=== PATIENT | female | born 2000 | race Caucasian/White ===

== ENCOUNTER → 2020-08-16 | Outpatient (CLI) | payer MEDICAID, SELFPAY ==
[2020-08-16 10:56] VITALS: BMI 28.8
[2020-08-18 05:07] LABS: Chlamydia By Nucleic Acid AMP Negative (Negative)
[2020-08-18 12:35] LABS: Gonococcus By Nucleic Acid AMP Negative (Negative)
[2020-08-18 21:04] LABS: HPV Reflexed? NOT INDICATED
== END | disposition home or self-care (01) ==
LOC: LABSPEC 13:05
PROVIDERS: PCP Nurse Practitioner Family; Referring Provider Nurse Practitioner Women's Health; Visit Provider Nurse Practitioner Women's Health
DX: Z12.4 Encounter for screening for malignant neoplasm of cervix (principal); Z11.3 Encounter for screening for infections with a predominantly sexual mode of transmission
CPT/HCPCS: 87491; 87591; 88175; G0145

== ENCOUNTER → 2021-04-19 15:44 | Outpatient (CLI) | payer MEDICAID, SELFPAY ==
[2021-04-19 17:12] LABS: hCG Titer Quant., Serum 102 mIU/mL (1-3)
== END ==
PROVIDERS: PCP Nurse Practitioner Family; Referring Provider Obstetrics & Gynecology; Visit Provider Obstetrics & Gynecology
DX: Z34.90 Encounter for supervision of normal pregnancy, unspecified, unspecified trimester (principal)
CPT/HCPCS: 36415; 84702

== ENCOUNTER → 2021-04-21 08:37 | Outpatient (CLI) | payer MEDICAID, SELFPAY ==
[2021-04-21 09:33] LABS: hCG Titer Quant., Serum 286 mIU/mL (1-3)
== END ==
PROVIDERS: PCP Nurse Practitioner Family; Visit Provider Obstetrics & Gynecology
DX: N92.6 Irregular menstruation, unspecified (principal)
CPT/HCPCS: 84702

== ENCOUNTER 2021-05-01 16:14 | Emergency (ER) | payer MEDICAID, SELFPAY ==
[2021-05-01 16:16] VITALS: BP 134/62; PULSE 90; RESP 16; TEMP 36.1; O2SAT 97; BMI 29.2
--- NOTE | 2021-05-01 16:48 | EDS_ITS ---
HPI HPI - Female History of Present Illness Chief Complaint: Detail of Chief Complaint: Fell getting out of her truck today landing on her abdomen. Informant: patient Pain Context: Sudden Onset Timing: Continuous Quality: Positive for Aching Current Severity: Mild Maximum Severity: Mild Bleeding Issue: Negative for Vaginal bleeding Narrative Narrative: 20-year-old female currently [address] Karen Cannon. Patient states she was getting out of her truck today when she fell landing on her abdomen. Complaining of mild lower abdominal pain. Prior to this she had no pain. No vaginal bleeding. And is currently not having any vaginal bleeding. No hematuria. No fever or chills. States pain stabbing. She has had a prior . She has a history of anemia. Prior similar symptoms: No Recent Illness/Hospitalization: No PFSH [facility] Medical History Migraines VIOLET (obstructive sleep apnea) Home Medications albuterol sulfate 90 mcg/actuation breath activated powder inhaler 2 inh INHALATION Q6H PRN 08/16/20 [History Last Taken Unknown] atorvastatin 20 mg tablet 20 mg PO QHS 08/16/20 [History Last Taken Unknown] calcium carbonate 600 mg calcium (1,500 mg) tablet 600 mg PO DAILY 08/16/20 [History Last Taken Unknown] cetirizine 10 mg tablet 10 mg PO DAILY PRN 08/16/20 [History Last Taken Unknown] ergocalciferol (vitamin D2) 1,250 mcg (50,000 unit) capsule 1,250 mcg PO QWEEK 08/16/20 [History Last Taken Unknown] ferrous sulfate 325 mg (65 mg iron) tablet 325 mg PO TID tab 08/16/20 [History Last Taken Unknown] norgestimate 0.25 mg-ethinyl estradiol 35 mcg tablet 1 tab PO QDAY #84 tab 08/16/20 [Rx Last Taken Unknown] prednisone 20 mg tablet 40 mg PO DAILY tab 08/16/20 [History Last Taken Unknown] venlafaxine 37.5 mg tablet 37.5 mg PO DAILY 08/16/20 [History Last Taken Unknown] Allergy/AdvReac Type Severity Reaction Status Date / Time paroxetine [From Paxil] Allergy Intermediate Anaphylaxis Verified 05/01/21 16:16 mushroom Allergy Anaphylaxis Verified 05/01/21 16:16 tomato Allergy Anaphylaxis Verified 05/01/21 16:16 venlafaxine Allergy Anaphylaxis Verified 05/01/21 16:16 SEAFOOD Allergy Other Uncoded 05/01/21 16:16 Family History Grandfather CVA (cerebral vascular accident) Heart disease Leukemia Surgical History S/P Social History household members: significant other and children number of children: 1 current occupational status: employed current occupation: assisteed living, [employer] history of recent travel: No sexually active: Yes Smoking Status: Never smoker alcohol intake: current alcohol intake frequency: a few times a month substance use type: does not use what type of physical activity do you participate in: walking frequency: 3-4 times per week seatbelt use: always do you feel safe at home: Yes additional social history: boyfriend ROS ROS ED ROS Narrative Denies recent illness. Review of Systems ROS Unobtainable: Denies due to encephalopathy Constitutional Constitutional ED: Denies fever(s) Eyes Eyes: Denies change in vision ENT ENT ED: Denies ear pain Cardiovascular Cardiovascular: Denies chest pain Respiratory/Chest Respiratory/Chest: Denies dyspnea Gastrointestinal Gastrointestinal: Reports abdominal pain, nausea and vomiting; Denies constipation, diarrhea or melena Genitourinary Genitourinary ED: Denies dysuria Musculoskeletal Musculoskeletal: Denies myalgias Integumentary Denies rash Neurologic Neurologic: Denies headache(s) Psychiatric Psychiatric: Denies depression Endocrine Endocrinology: Denies polyuria Hematologic/Lymphatic Hematologic/Lymphatic: Denies easy bruising Allergic/Immunologic Allergic/Immunologic ED: Denies urticaria EXAM Physical Exam Narrative Exam Narrative: 20-year-old female fell landing on her abdomen complained disco mfort. Currently 6 weeks . Const Vital Signs: 05/01/21 16:16 Temperature 97 F L Temperature Source Temporal Pulse Rate 90 Respiratory Rate 16 Blood Pressure 134/62 H Blood Pressure Mean 86 Pulse Ox 97 Oxygen Delivery Method Room Air Positive well nourished and well developed; Negative for obese, cachectic, contractures or unkempt General Appearance ED: well developed and NAD; Negative for unkempt, cachectic, contractures or pallor Nutritional Appearance: Negative for cachectic or obese HEENT Reports moist mucous membranes Negative for trauma or tenderness Eyes PERRL and EOMs intact bilaterally Neck no lymphadenopathy, supple and no JVD Thyroid: Negative for tender Chest Wall inspection of chest normal and palpation of chest normal Resp normal respiratory effort and clear to auscultation bilaterally Effort and Inspection: Negative for pain with movement Auscultation: Negative for rales, rhonchi or wheezes Cardio regular rate, regular rhythm, S1 normal heart sound, no murmurs and no JVD GI normal to inspection, nondistended, normoactive bowel sounds, soft to palpation, non-tender, non-distended and no masses Auscultation: normoactive bowel sounds; Negative for hypoactive bowel sounds Palpation: Negative for tender, guarding or rigid Back/Spine no CVA tenderness General Back: Negative for CVA tenderness Cervical Spine: Negative for cervical spine tenderness Extremity normal to inspection and full ROM General Extremety ED: Negative for edema or tenderness General Extremity: Negative for edema Neuro oriented x3 Sensorium / Orientation: alert, oriented to person, oriented to place and oriented to time Motor Exam: strength 5/5 throughout Psych Appearance: Negative for unkempt Skin no rashes or lesions noted and no wounds General Skin Exam: Negative for jaundice or pallor MDM MDM MDM Narrative Medical decision making narrative: Well-appearing 20-year-old. Minor injury. Abdomen is benign. No bruising or signs of trauma. Really no tenderness. Definitely no peritoneal signs. Given that she is only 6 weeks there is really nothing to do at this time for the . Clinically she does not need a CAT scan and she had no symptoms prior to the fall. I think this is consistent with abdominal contusion. She knows to follow-up with [facility] or retu rn if she is feeling worse. Discharge Plan Triage Chief Complaint: ED Provider: Leonardo Max Dx/Rx/DC Orders Clinical Impression: Fall, First trimester , Blunt abdominal trauma Instructions: Blunt Abdominal Trauma Prescriptions: No Action prednisone 20 mg tablet 40 mg PO DAILY RF: 0 cetirizine 10 mg tablet 10 mg PO DAILY PRNRF: 0 ferrous sulfate 325 mg (65 mg iron) tablet 325 mg PO TID RF: 0 venlafaxine 37.5 mg tablet 37.5 mg PO DAILY RF: 0 atorvastatin 20 mg tablet 20 mg PO QHS RF: 0 ergocalciferol (vitamin D2) [Vitamin D2] 1,250 mcg (50,000 unit) capsule 1,250 mcg PO QWEEK RF: 0 calcium carbonate [Calcium 600] 600 mg calcium (1,500 mg) tablet 600 mg PO DAILY RF: 0 albuterol sulfate 90 mcg/actuation aerosol powdr breath activated 2 inh INHALATION Q6H PRNRF: 0 norgestimate-ethinyl estradiol [Sprintec (28)] 0.25-35 mg-mcg tablet 1 tab PO QDAY Qty: 84 RF: 4 Primary Care Provider: Enma Saleh Referrals: Karen Cannon MD [STAFF PHYSICIAN] - 3-5 Days if not improving Enma Saleh, PORTER LUGGAGE-C [Primary Care Provider] - Activity Restrictions/Additional Instructions: Tylenol for pain. Ice to your abdomen. Return if feeling worse or follow-up with your [facility] if not improving. Disposition Disposition: Home, Self Care
[2021-05-01] MEDS: Acetaminophen 500 MG Tablet 1000 MG PO (16:57)
[2021-05-01 17:00] VITALS: PULSE 97; RESP 16; O2SAT 100
== END 2021-05-01 17:10 | disposition home or self-care (01) ==
PROVIDERS: Emergency Provider Emergency Medicine; PCP Nurse Practitioner Family
DX: O26.891 Other specified pregnancy related conditions, first trimester (principal); S39.91XA Unspecified injury of abdomen, initial encounter; Z3A.01 Less than 8 weeks gestation of pregnancy; W17.89XA Other fall from one level to another, initial encounter; Y93.89 Activity, other specified; Y92.89 Other specified places as the place of occurrence of the external cause; Y99.8 Other external cause status
CPT/HCPCS: 99282

== ENCOUNTER 2021-05-06 13:25 | Emergency (ER) | payer MEDICAID, SELFPAY ==
[2021-05-06 13:25] VITALS: BP 119/74; PULSE 89; RESP 16; TEMP 36.4; O2SAT 99; BMI 30.2
--- NOTE | 2021-05-06 13:54 | EX.ED.DYSGE1 ---
HPI History of Present Illness Chief Complaint: Fall Informant: patient Narrative Narrative: 20-year-old female states that states she is post trauma day 5 from a fall out of her truck when she landed on her abdomen. She reports being possibly 7 weeks . She is seen Dr. Cannon. She was having no pain in her abdomen until today when she notes that about every 15 to 30 minutes she gets a pain throughout her abdomen that causes her to double over and then releases. She last had a bowel movement on Friday. In between each episode she states she feels fine. No vaginal bleeding no leakage of fluid. No nausea or vomiting [facility] Medical History Migraines VIOLET (obstructive sleep apnea) Home Medications albuterol sulfate 90 mcg/actuation breath activated powder inhaler 2 inh INHALATION Q6H PRN 08/16/20 [History Last Taken Unknown] atorvastatin 20 mg tablet 20 mg PO QHS 08/16/20 [History Last Taken Unknown] calcium carbonate 600 mg calcium (1,500 mg) tablet 600 mg PO DAILY 08/16/20 [History Last Taken Unknown] cetirizine 10 mg tablet 10 mg PO DAILY PRN 08/16/20 [History Last Taken Unknown] ergocalciferol (vitamin D2) 1,250 mcg (50,000 unit) capsule 1,250 mcg PO QWEEK 08/16/20 [History Last Taken Unknown] ferrous sulfate 325 mg (65 mg iron) tablet 325 mg PO TID tab 08/16/20 [History Last Taken Unknown] norgestimate 0.25 mg-ethinyl estradiol 35 mcg tablet 1 tab PO QDAY #84 tab 08/16/20 [Rx Last Taken Unknown] prednisone 20 mg tablet 40 mg PO DAILY tab 08/16/20 [History Last Taken Unknown] venlafaxine 37.5 mg tablet 37.5 mg PO DAILY 08/16/20 [History Last Taken Unknown] Allergy/AdvReac Type Severity Reaction Status Date / Time paroxetine [From Paxil] Allergy Intermediate Anaphylaxis Verified 05/06/21 13:27 mushroom Allergy Anaphylaxis Verified 05/06/21 13:27 tomato Allergy Anaphylaxis Verified 05/06/21 13:27 venlafaxine Allergy Anaphylaxis Verified 05/06/21 13:27 SEAFOOD Allergy Other Uncoded 05/06/21 13:27 Family History Grandfather CVA (cerebral vascular accident) Heart disease Leukemia Surgical History S/P Social History household members: significant other and children number of children: 1 current occupational status: employed current occupation: assisteed living, [employer] history of recent travel: No sexually active: Yes Smoking Status: Never smoker alcohol intake: current alcohol intake frequency: a few times a month substance use type: does not use what type of physical activity do you participate in: walking frequency: 3-4 times per week seatbelt use: always do you feel safe at home: Yes additional social history: boyfriend ROS ROS ED Constitutional Constitutional ED: Denies chills, fever(s) or weight loss Eyes Eyes: Denies change in vision or diplopia ENT ENT ED: Denies ear pain, rhinorrhea or sore throat Cardiovascular Cardiovascular: Denies chest pain, orthopnea, palpitations or racing heartbeat Respiratory/Chest Respiratory/Chest: Denies cough, dyspnea or orthopnea Gastrointestinal Gastrointestinal: Reports abdominal pain; Denies diarrhea, nausea or vomiting Genitourinary Genitourinary ED: Denies dysuria, hematuria or urinary frequency Musculoskeletal Musculoskeletal: Denies arthralgias or myalgias Integumentary Denies abscess or rash Neurologic Neurologic: Denies headache(s) or weakness Psychiatric Psychiatric: Denies anxiety, depression, suicidal ideation or suicidal thoughts Endocrine Endocrinology: Denies polydipsia, polyphagia or polyuria Allergic/Immunologic Allergic/Immunologic ED: Denies mouth swelling, tongue swelling or urticaria EXAM Physical Exam Const Vital Signs: 05/06/21 13:25 05/06/21 13:31 Temperature 97.5 F L Temperature Source Temporal Pulse Rate 89 Respiratory Rate 16 Respiratory Effort Normal Non-Labored Respiratory Depth Normal Respiratory Pattern Normal Blood Pressure 119/74 Blood Pressure Mean 89 Pulse Ox 99 Oxygen Delivery Method Room Air Positive well nourished and well developed General Appearance ED: well developed HEENT Reports normocephalic, head/scalp atraumatic and moist mucous membranes; Denies TM's clear trauma Tympanic Membrane ED: Negative for TM's clear Eyes PERRL and EOMs intact bilaterally Neck no lymphadenopathy, supple and no JVD Resp normal respiratory effort and clear to auscultation bilaterally Cardio regular rate, regular rhythm and no murmurs GI normal to inspection, nondistended, normoactive bowel sounds and non-tender Palpation: soft Back/Spine no CVA tenderness and normal ROM Extremity normal to inspection General Extremety ED: Negative for edema General Extremity: Negative for edema Neuro oriented x3 and CN's II-XII intact bilaterally Sensorium / Orientation: alert Motor Exam: strength 5/5 throughout Psych mental status grossly normal Mood & Affect: Negative for depressed or tearful Skin no rashes or lesions noted and no wounds MDM MDM MDM Narrative Medical decision making narrative: The patient has very active bowel sounds. Her hCG was only to be 280 on the 16. She is having no pelvic symptoms. Her pain to me seems colonic in nature. The fact that it is brief doubles her over and is generalized think would make it more colonic. Patient was advised Discharge Plan Triage Chief Complaint: Fall ED Provider: Shon Iglesias Dx/Rx/DC Orders Prescriptions: No Action prednisone 20 mg tablet 40 mg PO DAILY RF: 0 cetirizine 10 mg tablet 10 mg PO DAILY PRNRF: 0 ferrous sulfate 325 mg (65 mg iron) tablet 325 mg PO TID RF: 0 venlafaxine 37.5 mg tablet 37.5 mg PO DAILY RF: 0 atorvastatin 20 mg tablet 20 mg PO QHS RF: 0 ergocalciferol (vitamin D2) [Vitamin D2] 1,250 mcg (50,000 unit) capsule 1,250 mcg PO QWEEK RF: 0 calcium carbonate [Calcium 600] 600 mg calcium (1,500 mg) tablet 600 mg PO DAILY RF: 0 albuterol sulfate 90 mcg/actuation aerosol powdr breath activated 2 inh INHALATION Q6H PRNRF: 0 norgestimate-ethinyl estradiol [Sprintec (28)] 0.25-35 mg-mcg tablet 1 tab PO QDAY Qty: 84 RF: 4 Primary Care Provider: Enma Saleh
[2021-05-06 14:00] VITALS: RESP 16
== END 2021-05-06 14:03 | disposition home or self-care (01) ==
LOC: ED 14:03
PROVIDERS: Emergency Provider Emergency Medicine; PCP Nurse Practitioner Family
DX: R10.84 Generalized abdominal pain (principal)
CPT/HCPCS: 99282

== ENCOUNTER → 2021-05-25 | Outpatient (CLI) | payer MEDICAID, SELFPAY ==
[2021-05-25 15:04] LABS: Amphetamine Urine VISTA NEGATIVE (<1000 ng/mL); Barbiturate Urine VISTA NEGATIVE (< 200 ng/mL); Benzodiazepine Urine VISTA NEGATIVE (< 200 ng/mL); Cocaine Urine VISTA NEGATIVE (< 300 ng/mL); Ecstacy Urine VISTA NEGATIVE (< 500 ng/mL); Methadone Urine VISTA NEGATIVE (< 300 ng/mL); PCP Urine VISTA NEGATIVE (< 25 ng/mL); THC Urine VISTA NEGATIVE (< 50 ng/mL); Vista UDS pH Range 6
[2021-05-28 22:06] LABS: Chlamydia By Nucleic Acid AMP Negative (Negative)
[2021-05-29 07:37] LABS: Gonococcus By Nucleic Acid AMP Negative (Negative)
== END | disposition home or self-care (01) ==
LOC: LABSPEC 14:11
PROVIDERS: PCP Nurse Practitioner Family; Referring Provider Obstetrics & Gynecology; Visit Provider Obstetrics & Gynecology
DX: Z34.90 Encounter for supervision of normal pregnancy, unspecified, unspecified trimester (principal)
CPT/HCPCS: 80307; 87086; 87088; 87491; 87591

== ENCOUNTER → 2021-06-01 09:10 | Outpatient (CLI) | payer MEDICAID, SELFPAY ==
[2021-06-01 10:17] LABS: NATERA MAILED SPECIMEN
[2021-06-01 11:22] LABS: Absolute Lymphocyte Count 1.17 X10^3/uL (0.83-4.51); Absolute Neutrophil Count 4.9 X10^3/uL (2.0-7.7); Basophil# 0.02 X10^3/uL; Basophil% 0.3 % (0-1); Eosinophil# 0.02 X10^3/uL; Eosinophils% 0.3 % (0-5); Hemoglobin 11.7 g/dL (12.0-15.0); Lymphocyte # 1.17 X10^3/ul (0.83-4.51); Lymphocyte % 17.8 % (19-41); Mean Corp Hgb Conc 32.5 g/dL (32-36); Mean Corpuscular Hgb 25.9 pg (27.0-32.0); Mean Corpuscular Volume 79.6 fL (81-99); Mean Platelet Vol. 11.1 fl (6.2-12.0); Monocyte# 0.45 X10^3/uL; Monocyte% 6.8 % (0-10); NRBC Flagged by Analyzer 0 % (0-5); Neutrophil # 4.91 X10^3/uL (2.7-7.7); Neutrophil % 74.6 % (47-70); Platelet Count 246 K/mm3 (150-450); RBC Distribution Width CV 14.7 % (11.6-14.6); RBC Distribution Width SD 42.7 fl (35.1-43.9); Red Blood Count 4.52 M/mm3 (4.2-5.4); White Blood Count 6.6 K/mm3 (4.4-11.0)
[2021-06-01 14:11] LABS: HIV - WCH Non-Reactive (Nonreactive); Hepatitis B Surface Antigen Non-Reactive (Nonreactive); Hepatitis C Antibody Non-Reactive (Nonreactive); Syphilis Antibodies Non-reactive
== END ==
PROVIDERS: PCP Nurse Practitioner Family; Visit Provider Obstetrics & Gynecology
DX: Z34.81 Encounter for supervision of other normal pregnancy, first trimester (principal)
CPT/HCPCS: 36415; 85025; 86703; 86762; 86780; 86803; 86850; 86900; 86901; 87340

== ENCOUNTER 2021-08-14 13:42 | Outpatient (CLI) | payer MEDICAID, SELFPAY ==
--- NOTE | 2021-08-14 13:44 | US_ITS ---
STUDY: SECOND AND THIRD TRIMESTER OBSTETRICAL ULTRASOUND REASON FOR EXAM: Female, 21 years old anatomy LMP: 03/22/2021. TECHNIQUE: Transabdominal and Transvaginal TECHNICAL QUALITY: Adequate. PRIOR ULTRASOUND: None. FINDINGS: There is a single intrauterine fetus. The fetus is in a cephalic presentation. There is demonstrated cardiac activity with a heart rate of 150 bpm. There is a normal amniotic fluid volume. The largest amniotic fluid pocket measures 4.6 cm x 2.6 cm. The amniotic fluid index (JOHANA) is within normal limits. The placenta is posterior and fundal in location and is not low lying. There are Grade 0 placental changes. The cervix measures 4.1 cm in length. The bilateral adnexal regions are normal. BIOMETRY: BPD: 4.8 cm: 20 weeks, 3 days HC: 17.4 cm: 19 weeks, 6 days AC: 15.8 cm: 20 weeks, 6 days FL: 3.3 cm: 20 weeks, 2 days CI: 83% FL/BPD: 69% FL/HC: FL/AC: 21% HC/AC: 1.1 age by current US: 20 weeks, 0 days. GIORGIO by current US: 01/01/2022. Estimated weight: 370 grams, +/- 56 grams, 43 %. Age by LMP: 20 weeks, 5 days. GIORGIO by LMP: 12/27/2021. ANATOMY: Gender: Female Cranium: Normal lateral ventricles. Normal choroid plexus. Normal cerebellum. Normal cisterna magna. Limited visualization of the facial and head structures due to the positioning. Chest: Normal 4-chamber heart. Abdomen/Pelvis: Normal diaphragm. Normal stomach. Normal abdominal wall. Normal cord insertion. Normal 3 vessel cord. Normal kidneys. Normal bladder. Spine: Normal cervical spine. Normal thoracic spine. Normal lumbar spine. Normal sacrum. Extremities: Normal bilateral upper extremities. Normal bilateral lower extremities. IMPRESSION: Single live intrauterine gestation with a mean gestational age of 20 weeks. Limited visualization of the facial structures due to head positioning. Electronically Signed: Eliezer Lee MD at 9:36 EST , STUDY: FIRST TRIMESTER OBSTETRICAL ULTRASOUND REASON FOR EXAM: Female, 21 years old . Cervical length measurement. LMP: 03/22/2021 TECHNIQUE: Transvaginal TECHNICAL QUALITY: Adequate. PRIOR ULTRASOUND: None. FINDINGS: Cervical length measures 4.1 cm. US/OB Anatomy Scan IMPRESSION: Cervical length measures 4.1 cm. Electronically Signed: Eliezer Lee MD at 9:36 EST ,
--- NOTE | 2021-08-14 13:44 | US_ITS ---
STUDY: SECOND AND THIRD TRIMESTER OBSTETRICAL ULTRASOUND REASON FOR EXAM: Female, 21 years old anatomy LMP: 03/22/2021. TECHNIQUE: Transabdominal and Transvaginal TECHNICAL QUALITY: Adequate. PRIOR ULTRASOUND: None. FINDINGS: There is a single intrauterine fetus. The fetus is in a cephalic presentation. There is demonstrated cardiac activity with a heart rate of 150 bpm. There is a normal amniotic fluid volume. The largest amniotic fluid pocket measures 4.6 cm x 2.6 cm. The amniotic fluid index (JOHANA) is within normal limits. The placenta is posterior and fundal in location and is not low lying. There are Grade 0 placental changes. The cervix measures 4.1 cm in length. The bilateral adnexal regions are normal. BIOMETRY: BPD: 4.8 cm: 20 weeks, 3 days HC: 17.4 cm: 19 weeks, 6 days AC: 15.8 cm: 20 weeks, 6 days FL: 3.3 cm: 20 weeks, 2 days CI: 83% FL/BPD: 69% FL/HC: FL/AC: 21% HC/AC: 1.1 age by current US: 20 weeks, 0 days. GIORGIO by current US: 01/01/2022. Estimated weight: 370 grams, +/- 56 grams, 43 %. Age by LMP: 20 weeks, 5 days. GIORGIO by LMP: 12/27/2021. ANATOMY: Gender: Female Cranium: Normal lateral ventricles. Normal choroid plexus. Normal cerebellum. Normal cisterna magna. Limited visualization of the facial and head structures due to the positioning. Chest: Normal 4-chamber heart. Abdomen/Pelvis: Normal diaphragm. Normal stomach. Normal abdominal wall. Normal cord insertion. Normal 3 vessel cord. Normal kidneys. Normal bladder. Spine: Normal cervical spine. Normal thoracic spine. Normal lumbar spine. Normal sacrum. Extremities: Normal bilateral upper extremities. Normal bilateral lower extremities. IMPRESSION: Single live intrauterine gestation with a mean gestational age of 20 weeks. Limited visualization of the facial structures due to head positioning. Electronically Signed: Eliezer Lee MD at 9:36 EST , STUDY: FIRST TRIMESTER OBSTETRICAL ULTRASOUND REASON FOR EXAM: Female, 21 years old . Cervical length measurement. LMP: 03/22/2021 TECHNIQUE: Transvaginal TECHNICAL QUALITY: Adequate. PRIOR ULTRASOUND: None. FINDINGS: Cervical length measures 4.1 cm. US/Transvaginal w/Preg US IMPRESSION: Cervical length measures 4.1 cm. Electronically Signed: Eliezer Lee MD at 9:36 EST ,
== END 2021-08-14 23:59 | disposition home or self-care (01) ==
LOC: OPUS 13:42
PROVIDERS: PCP Nurse Practitioner Family; Referring Provider Obstetrics & Gynecology; Visit Provider Obstetrics & Gynecology
DX: O09.90 Supervision of high risk pregnancy, unspecified, unspecified trimester (principal)
CPT/HCPCS: 76805; 76817

== ENCOUNTER 2021-08-20 12:51 | Outpatient (CLI) | payer MEDICAID, SELFPAY ==
--- NOTE | 2021-08-20 12:53 | US_ITS ---
STUDY: SECOND AND THIRD TRIMESTER OBSTETRICAL ULTRASOUND - LIMITED REASON FOR EXAM: Female, 21 years old anatomy follow up LMP: 03/22/2021. PRIOR ULTRASOUND: Comparison is made with prior study dated 08/14/2021. TECHNIQUE: Transabdominal TECHNICAL QUALITY: Adequate. FINDINGS: There is a single intrauterine fetus. The fetus is in a cephalic presentation. There is demonstrated cardiac activity with a heart rate of 162 bpm. There is a normal amniotic fluid volume. The largest amniotic fluid pocket measures 4 cm x 2.3 cm. The amniotic fluid index (JOHANA) is within normal limits. The placenta is posterior and fundal in location and is not low lying. There are Grade 0 placental changes. The cervix measures 3 cm in length. The facial structures were visualized and are unremarkable. US/OB Limited (No Biometrics) IMPRESSION: Unremarkable facial structure appearance of the fetus. Electronically Signed: Eliezer Lee MD at 15:43 EST ,
== END 2021-08-20 23:59 | disposition home or self-care (01) ==
LOC: US 12:51
PROVIDERS: PCP Nurse Practitioner Family; Referring Provider Obstetrics & Gynecology; Visit Provider Obstetrics & Gynecology
DX: O09.92 Supervision of high risk pregnancy, unspecified, second trimester (principal); Z3A.17 17 weeks gestation of pregnancy
CPT/HCPCS: 76815

== ENCOUNTER 2021-08-28 16:35 | Outpatient (CLI) | payer MEDICAID, SELFPAY | END 2021-08-28 23:59 | disposition home or self-care (01) | LOC: LABSPEC 16:36 | PROVIDERS: PCP Nurse Practitioner Family; Visit Provider Nurse Practitioner Women's Health | DX: R30.0 Dysuria (principal) | CPT/HCPCS: 87086; 87088 ==

== ENCOUNTER 2021-09-24 09:09 | Outpatient (CLI) | payer MEDICAID, SELFPAY | END 2021-09-24 23:59 | disposition home or self-care (01) | LOC: LABSPEC 09-25 09:11 | PROVIDERS: PCP Nurse Practitioner Family; Visit Provider Obstetrics & Gynecology | DX: R10.2 Pelvic and perineal pain (principal) | CPT/HCPCS: 87086; 87088 ==

== ENCOUNTER 2021-09-29 16:50 | Emergency (ER) | payer MEDICAID, SELFPAY ==
[2021-09-29 16:52] VITALS: BP 117/67; PULSE 103; RESP 14; TEMP 35.7; O2SAT 99; BMI 28.9
--- NOTE | 2021-09-29 17:52 | EDS_ITS ---
HPI History of Present Illness Chief Complaint: Shortness of Breath Detail of Chief Complaint: Choking on saliva and was short of breath Informant: patient Onset/Context/Timing Onset: Today and Hours (Incident occurred at 11 AM) Context: sudden and rest Timing: Intermittent and Lasts (1 to 2 minutes) Quality: Negative for Dyspnea on exertion, Orthopnea, PND and Wheezing Current Severity: Gone Maximum Severity: Moderate Worsened by: - (Choked on saliva) Relieved by: Nothing Associated Symptoms cough and sore throat; Negative for rhinorrhea, post nasal drip, ear pain, fever, subjective, chills, sweats, clear sputum, white sputum, yellow sputum or green sputum Chest Pain: Positive for None Narrative Narrative: Patient is a 21-year-old woman with history of depression and anxiety as well as asthma who presents because used her inhaler at 11 AM. She choked on her saliva. This lasted 1 to 2 minutes. Patient presently denies fever, chills night sweats. She denies rhinorrhea, congestion, postnasal drainage sore throat. She denies trouble with speech or swallowing. She denies chest pain. She denies shortness of breath. She denies wheezing. She states she did use her inhaler with no effect. She denies GI symptoms. PE Risk Factors: Negative for Cancer, Prior DVT or PE, Recent immobilization, Recent surgery and Recent travel Prior similar symptoms: No Recent Illness/Hospitalization: No PFSH PFSH Medical History Hyperlipemia Migraines VIOLET (obstructive sleep apnea) PTSD (post-traumatic stress disorder) Rubella non-immune status, antepartum Home Medications albuterol sulfate 90 mcg/actuation breath activated powder inhaler 2 inh INHALATION Q6H PRN 08/16/20 [History Last Taken Unknown] rizatriptan 5 mg PO DAILY 09/29/21 [History Last Taken Unknown] Allergy/AdvReac Type Severity Reaction Status Date / Time paroxetine [From Paxil] Allergy Intermediate Anaphylaxis Verified 09/29/21 16:52 mushroom Allergy Anaphylaxis Verified 09/29/21 16:52 tomato Allergy Anaphylaxis Verified 09/29/21 16:52 venlafaxine Allergy Anaphylaxis Verified 09/29/21 16:52 SEAFOOD Allergy Other Uncoded 09/29/21 16:52 Family History Grandfather CVA (cerebral vascular accident) Heart disease Leukemia Surgical History S/P Social History household members: significant other and children number of children: 1 current occupational status: employed current occupation: assisteed living, [employer] history of recent travel: No sexually active: Yes Smoking Status: Never smoker alcohol intake: current alcohol intake frequency: a few times a month substance use type: does not use what type of physical activity do you participate in: walking frequency: 3-4 times per week seatbelt use: always do you feel safe at home: Yes additional social history: DONNA- Desmond ROS ROS ED Constitutional Constitutional ED: Denies chills, fever(s), sweats or weight loss Eyes Eyes: Denies blurry vision, change in vision or diplopia ENT ENT ED: Denies ear pain, rhinorrhea or sore throat Cardiovascular Cardiovascular: Denies chest pain, orthopnea, palpitations, paroxysmal nocturnal dyspnea or racing heartbeat Respiratory/Chest Respiratory/Chest: Reports cough and dyspnea; Denies dyspnea on exertion, orthopnea, paroxysmal nocturnal dyspnea or sputum Gastrointestinal Gastrointestinal: Denies abdominal pain, constipation, diarrhea, nausea or vomiting Allergic/Immunologic Allergic/Immunologic ED: Denies mouth swelling, tongue swelling or urticaria EXAM Physical Exam Const Vital Signs: 09/29/21 16:52 09/29/21 17:04 Temperature 96.2 F L Temperature Source Temporal Pulse Rate 103 H Respiratory Rate 14 Respiratory Effort Normal Blood Pressure 117/67 Blood Pressure Mean 83 Pulse Ox 99 Oxygen Delivery Method Room Air Positive well nourished and well developed General Appearance ED: well developed and NAD; Negative for pallor HEENT Reports TM's clear and moist mucous membranes HEENT Narrative: Posterior pharynx remarkable. Is no erythema exudate. Uvula is midline. There is no active angioedema. atraumatic and trauma; Negative for tenderness Tympanic Membrane ED: Yes TM's clear Eyes PERRL and EOMs intact bilaterally General Eye ED: Negative for pale conjunctiva or scleral icterus Neck no lymphadenopathy, supple and no meningeal signs Neck Narrative: Trachea is midline. There is no in-store expiratory stridor. Resp normal respiratory effort and clear to auscultation bilaterally Cardio regular rate, regular rhythm, S1 normal heart sound, S2 normal heart sound and no murmurs GI non-tender, non-distended and no masses Auscultation: normoactive bowel sounds Palpation: soft Back/Spine no CVA tenderness and normal to inspection Neuro oriented x3 and CN's II-XII intact bilaterally Soumya Coma Scale: document GCS findings Spontaneous Obeys Commands Oriented 15 Sensorium / Orientation: alert Psych mental status grossly normal Thought Process: normal thought process Skin no wounds General Skin Exam: Negative for jaundice or pallor Lesions: no lesions Rashes: no rashes MDM MDM MDM Narrative Medical decision making narrative: Patient presents with choking episode. She was reevaluated 45 minutes after initial evaluation. There is no change in her status. She was discharged to home. She is comfortable with this. She had no questions. Discharge Plan Triage Chief Complaint: Shortness of Breath ED Provider: Tommy Lozada Dx/Rx/DC Orders Clinical Impression: Choking episode, History of asthma Instructions: ED Choking Spell (Adult) Prescriptions: No Action albuterol sulfate 90 mcg/actuation aerosol powdr breath activated 2 inh INHALATION Q6H PRN (Reason: Shortness Of Breath) RF: 0 rizatriptan 5 mg tablet 5 mg PO DAILY RF: 0 Primary Care Provider: Enma Saleh Referrals: Enma Saleh, [facility] [Primary Care Provider] - As Needed Disposition Disposition: Home, Self Care
== END 2021-09-29 18:11 | disposition home or self-care (01) ==
PROVIDERS: Emergency Provider Emergency Medicine; PCP Nurse Practitioner Family; Visit Provider Emergency Medicine
DX: T17.998A Other foreign object in respiratory tract, part unspecified causing other injury, initial encounter (principal); Y92.9 Unspecified place or not applicable; E78.5 Hyperlipidemia, unspecified; F41.9 Anxiety disorder, unspecified; G47.33 Obstructive sleep apnea (adult) (pediatric); F43.10 Post-traumatic stress disorder, unspecified; G43.909 Migraine, unspecified, not intractable, without status migrainosus; Z79.899 Other long term (current) drug therapy; J45.909 Unspecified asthma, uncomplicated; F32.A Depression, unspecified
CPT/HCPCS: 99282

== ENCOUNTER 2021-10-03 13:45 | Outpatient (CLI) | payer MEDICAID, SELFPAY ==
[2021-10-03 14:27] LABS: Absolute Lymphocyte Count 1.55 X10^3/uL (0.83-4.51); Absolute Neutrophil Count 8.3 X10^3/uL (2.0-7.7); Basophil# 0.01 X10^3/uL; Basophil% 0.1 % (0-1); Eosinophil# 0.04 X10^3/uL; Eosinophils% 0.4 % (0-5); Hematocrit 29.9 % (37-47); Hemoglobin 9.4 g/dL (12.0-15.0); Lymphocyte # 1.55 X10^3/ul (0.83-4.51); Lymphocyte % 14.8 % (19-41); Mean Corp Hgb Conc 31.4 g/dL (32-36); Mean Corpuscular Hgb 25.5 pg (27.0-32.0); Mean Corpuscular Volume 81.3 fL (81-99); Mean Platelet Vol. 11.2 fl (6.2-12.0); Monocyte% 4.8 % (0-10); NRBC Flagged by Analyzer 0 % (0-5); Neutrophil % 79.4 % (47-70); Platelet Count 263 K/mm3 (150-450); RBC Distribution Width CV 15.2 % (11.6-14.6); RBC Distribution Width SD 44.5 fl (35.1-43.9); Red Blood Count 3.68 M/mm3 (4.2-5.4); White Blood Count 10.5 K/mm3 (4.4-11.0)
[2021-10-03 14:59] LABS: Glucose Challenge Gest 1H 50g 147 mg/dL (70-140)
== END 2021-10-03 23:59 | disposition home or self-care (01) ==
LOC: LAB 13:46
PROVIDERS: Nurse Practitioner Women's Health; PCP Nurse Practitioner Family; Visit Provider Obstetrics & Gynecology
DX: Z34.90 Encounter for supervision of normal pregnancy, unspecified, unspecified trimester (principal); Z3A.26 26 weeks gestation of pregnancy
CPT/HCPCS: 36415; 82950; 85025

== ENCOUNTER 2021-10-08 09:39 | Outpatient (CLI) | payer MEDICAID, SELFPAY ==
[2021-10-08 10:51] LABS: Glucose GTT-Gestation. Fasting 83 mg/dL (<105)
[2021-10-08 12:00] LABS: Glucose GTT-Gestational 1 Hr 163 mg/dL (<190)
[2021-10-08 13:25] LABS: Glucose GTT-Gestational 2 Hr 113 mg/dL (<165)
[2021-10-08 14:05] LABS: Glucose GTT-Gestational 3 Hr 109 L (<145)
== END 2021-10-08 23:59 | disposition home or self-care (01) ==
PROVIDERS: Nurse Practitioner Women's Health; PCP Nurse Practitioner Family; Referring Provider Obstetrics & Gynecology; Visit Provider Obstetrics & Gynecology
DX: Z13.1 Encounter for screening for diabetes mellitus (principal)
CPT/HCPCS: 36415; 82951; 82952

== ENCOUNTER → 2021-11-16 | Outpatient (CLI) | payer MEDICAID, SELFPAY ==
--- NOTE | 2021-11-16 13:03 | VDLE_ITS ---
Reason For Study: Swelling Procedure LEFT This is a venous duplex using B-mode, color GSV is normal. flow and spectral Doppler. CFV is compressible, spontaneous, phasic, Exam performed in department. competent, and demonstrates normal A preliminary report was called and/or faxed augmentation. to [facility]. FV is compressible, spontaneous, phasic, competent and demonstrates normal augmentation. POP V is compressible, spontaneous, phasic, competent and demonstrates normal augmentation. T/P Trunk is compressible. PTV is compressible. LT PerV is compressible. VL/Venous Duplex US, Unilateral Interpretation Summary There is no evidence of left lower extremity deep vein thrombosis. Left great s aphenous vein appears patent and compressible segmentally. Ordering Physician: Martha Bowen Referring Physician: Enma Saleh Performed By: Maty Levi RVT
== END | disposition home or self-care (01) ==
LOC: CVS 13:02
PROVIDERS: PCP Nurse Practitioner Family; Referring Provider Obstetrics & Gynecology; Visit Provider Obstetrics & Gynecology
DX: M79.89 Other specified soft tissue disorders (principal)
CPT/HCPCS: 93971

== ENCOUNTER 2021-11-23 19:25 | Outpatient (CLI) | payer MEDICAID, SELFPAY ==
[2021-11-23 19:29] VITALS: BMI 29.0
[2021-11-23 19:35] VITALS: BP 134/79; PULSE 100
[2021-11-23 19:36] VITALS: PULSE 93; TEMP 37.1; O2SAT 98
[2021-11-23 20:40] LABS: ROM Internal Control Test YES-OK TO RESULT pt. (Internal QC); ROM Patient Test Negative (Negative)
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
== END 2021-11-23 21:00 | disposition home or self-care (01) ==
LOC: WPOUT 19:27 → WP 19:29
PROVIDERS: PCP Nurse Practitioner Family; Visit Provider Obstetrics & Gynecology
DX: O47.03 False labor before 37 completed weeks of gestation, third trimester (principal); O34.219 Maternal care for unspecified type scar from previous cesarean delivery; E78.5 Hyperlipidemia, unspecified; O99.343 Other mental disorders complicating pregnancy, third trimester; F41.9 Anxiety disorder, unspecified; F32.A Depression, unspecified; Z3A.35 35 weeks gestation of pregnancy; O99.283 Endocrine, nutritional and metabolic diseases complicating pregnancy, third trimester; F43.10 Post-traumatic stress disorder, unspecified; O99.353 Diseases of the nervous system complicating pregnancy, third trimester; G47.33 Obstructive sleep apnea (adult) (pediatric); Z79.899 Other long term (current) drug therapy
CPT/HCPCS: 59025; 59050; 84112; 99218; G0378

== ENCOUNTER → 2021-11-30 | Outpatient (CLI) | payer MEDICAID, SELFPAY | END | disposition home or self-care (01) | LOC: LABSPEC 09:24 | PROVIDERS: PCP Nurse Practitioner Family; Visit Provider Obstetrics & Gynecology | DX: Z34.90 Encounter for supervision of normal pregnancy, unspecified, unspecified trimester (principal); Z3A.36 36 weeks gestation of pregnancy | CPT/HCPCS: 87081 ==

== ENCOUNTER 2021-12-05 19:25 | Inpatient (IN) | payer MEDICAID, SELFPAY ==
[2021-12-05] VITALS (11 sets, daily range): BP systolic 111–126; BP diastolic 53–71; PULSE 68–108; RESP 16–19; TEMP 36.5–37.3; O2SAT 96–100; BMI 29.3
[2021-12-05] MEDS: Lactated Ringers 1,000 ML 999 ML IV (18:10)
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
[2021-12-05] MEDS: Sodium Citrate/Citric Acid 30 ML UDC PO (19:52)
[2021-12-05] MEDS: Lactated Ringers 1,000 ML 150 ML IV (19:53)
[2021-12-05] MEDS: Acetaminophen 500 MG Tablet PO (20:17)
[2021-12-05 20:26] LABS: Absolute Lymphocyte Count 2.22 X10^3/uL (0.83-4.51); Absolute Neutrophil Count 9.1 X10^3/uL (2.0-7.7); Basophil# 0.02 X10^3/uL; Basophil% 0.2 % (0-1); Eosinophil# 0.05 X10^3/uL; Eosinophils% 0.4 % (0-5); Hematocrit 27.5 % (37-47); Hemoglobin 8.5 g/dL (12.0-15.0); Lymphocyte # 2.22 X10^3/ul (0.83-4.51); Lymphocyte % 18.4 % (19-41); Mean Corp Hgb Conc 30.9 g/dL (32-36); Mean Corpuscular Volume 74.3 fL (81-99); Mean Platelet Vol. 11.4 fl (6.2-12.0); Monocyte# 0.68 X10^3/uL; Monocyte% 5.6 % (0-10); NRBC Flagged by Analyzer 0 % (0-5); Neutrophil # 9.06 X10^3/uL (2.7-7.7); Neutrophil % 75.1 % (47-70); Platelet Count 247 K/mm3 (150-450); RBC Distribution Width CV 14.9 % (11.6-14.6); RBC Distribution Width SD 40.1 fl (35.1-43.9); White Blood Count 12.1 K/mm3 (4.4-11.0)
[2021-12-05] MEDS: 0.9% Saline Lock 10 ML Syringe IV (20:40)
[2021-12-05] MEDS: Cefazolin 2 GM in 0.9% Normal Saline 100 ML IV (20:59)
--- NOTE | 2021-12-05 21:08 | DCINST_ITS ---
Discharge Instructions Diet Discharge Diet: No restrictions Activity Discharge Activity: May Not Drive (for 2 weeks or while taking narcotic pain medications.), May Shower and May Take a Tub Bath (in 7 days.) May resume sexual activity in: 4-6 weeks Weight Bearing Status: Full weight bearing Lifting Restrictions: 20 pounds Dressing / Incision Call your doctor if your incision/area has: Continuous Slow Oozing, Sudden Increased Bleeding, Increased Pain/ Swelling, Increased Redness and Foul Smelling Discharge Call your doctor if you observe: Fever of 101 or Higher and Using more than 1 pad per hour Suture Line Care: Avoid Pulling/Pushing and Avoid Pinching/Bending Cleanse incision/area with: Soap & Water and Keep Dressing Clean & Dry Follow Up Care Please Follow Up With: Martha Bowen DO When: Call [phone] to make an appointment for an incision check in 1-2 weeks. Test Results: Test results from this visit will be discussed in further detail at your follow-up appointment, if applicable. Discharge Plan Admission Admit Date/Time: 12/05/21 19:25 Primary Reason for Your Visit: repeat section Attending Provider: Martha Bowen Primary Care Provider: Enma Saleh Discharge Orders/Prescriptions Prescriptions: New ibuprofen 800 mg tablet 800 mg PO Q8H PRN (Reason: pain) 7 Days Qty: 30 RF: 0 oxycodone-acetaminophen [Percocet] 5-325 mg tablet 1 tab PO Q4H PRN (Reason: pain) 7 Days Qty: 30 RF: 0 Continued albuterol sulfate 90 mcg/actuation aerosol powdr breath activated 2 inh INHALATION Q6H PRN (Reason: Shortness Of Breath) RF: 0 budesonide-formoterol [Symbicort] 80-4.5 mcg/actuation HFA aerosol inhaler 2 puff inhalation BID RF: 0 albuterol sulfate 2.5 mg /3 mL (0.083 %) solution for nebulization 2.5 mg inhalation Q6H RF: 0 rizatriptan 5 mg tablet 5 mg PO DAILY RF: 0 famotidine [Pepcid] 20 mg Tablet 20 mg PO BID RF: 0 1 tablet PO/SL DAILY RF: 0 acetaminophen RF: 0 Discontinued cyclobenzaprine 10 mg tablet 10 mg PO TID PRN (Reason: muscle spasm) Qty: 30 RF: 2 Referrals / Follow Up: Enma Saleh, [employer] [Primary Care Provider] - Disposition Disposition (needs filled in before D/C Order can be placed): Home, Self Care
--- NOTE | 2021-12-05 21:52 | EX.PCM.OBRPT ---
Assessment & Plan (1) labor: COMMENT: 36 weeks 6 days active labor, suspect polyhydramnios (2) Abnormal glucose affecting : COMMENT: Normal 3hr GTT (3) Rubella non-immune status, antepartum: COMMENT: get MMR (4) Supervision of high risk , antepartum: COMMENT: PRR GIORGIO: 12/27/21 girl PC: Sivan BF: Desmond (5) : QUALIFIERS: Weeks of gestation: 36 weeks Qualified Code(s): Z3A.36 - 36 weeks gestation of COMMENT: GBS negative, anatomy nl, needs addtnl facial views genetic-low risk female and carrier-neg (6) H/O section: COMMENT: plan RLTCS. scheduled for 12/20 at 7:30 am with JV (7) H/O hemorrhage, currently : COMMENT: received 2 units after her c/s, FTP CPD (8) Anxiety and depression: COMMENT: currently not on any medications (9) Anemia: Maternal Data Information GIORGIO Calculator Estimated Delivery Date Method Current WG Current Estimate 12/27/21 Ultrasound #1 36w 6d Other Estimates 12/20/21 LMP (Certain) 37w 6d Details Operative Information Date of Procedure: 12/05/21 Pre-Operative Diagnosis: @ 36 weeks 6 days, active labor, previous section, declines Post-Operative Diagnosis: @ 36 weeks 6 days, active labor, previous section, declines , suspect polyhydramnios Indications for : Repeat Elective tarper #1: Crystal Avila Type of Anesthesia: Spinal Anesthesiologist: Jatinder Rogers Antibiotic Given: Ancef 2 grams IV x1 Drain: Chavarria to straight drain Estimated Blood Loss: 450cc Findings Description of Procedure: The patient is a 21y/o@ 36 weeks 6 days who presented to labor and delivery with conctions q 1 minute. She requested repeat . Spinal anesthesia was placed without difficulty. Chavarria catheter was placed. The patient was placed in the dorsal supine position with leftward tilt. Patient was prepped and draped in the normal sterile fashion. Pfannenstiel skin incision was made with the scalpel and carried through to the underlying layer of fascia with the scalpel. Fascia was nicked in the midline and the incision extended laterally. The rectus bellies were dissected off superiorly and inferiorly with out complication both sharply and bluntly. The peritoneum was entered digitally. The incision was stretched and a low transverse uterine incision was made with the scalpel. The 's head was delivered atraumatically followed by the anterior and posterior shoulders without complication the rest of the delivered. The cord was clamped and cut and the infant was handed off to awaiting nurse. The placenta was delivered spontaneously immediately following and was noted to be intact and have a three-vessel cord. The uterus was exteriorized cleared of all clots and debris, and the incision was closed in a double layer closure using #1Vicryl and #1 Monocryl. The ovaries and fallopian tubes were noted to be within normal limits. The uterus was returned to the maternal abdomen and gutters were cleared of all clots and debris. The peritoneum was closed with 3-0 Monocryl in a running fashion. Gloves were changed prior to fascial closure. Fascia was closed with 0 PDS in a running fashion. Subcutaneous tissue was copiously irrigated and the skin was closed with 3-0 Monocryl in a subcuticular fashion. Mepilex dressing was applied without complication. Patient was taken to recovery in stable condition. It was discussed with the patient that based on the clinical information obtained during this encounter, combined with her history, at this time I would recommend repeat section for future deliveries if further pregnancies are desired. Presentation: Positive for Vertex Amniotic Membrane Rupture Type: Artificial Amniotic Fluid Description: Clear and - (800cc of amniotic fluid suctioned ) Placental Delivery Description: Manual Removal Placenta Disposition: [facility] Cord Vessel Description: 3 Vessels Cord Entanglement: None Infant A Gender: Female (1 minute): 8 (5 minute): 9 Delayed Cord Clamping: Yes Complications Risks of Surgery Discussed w/Patient: Bleeding, Anesthesia Risks, Infection, Need for Future C-Sections and Availability of other non-permanent control options Complications: none Multi Select Codes Urinary/Genital Urinary/Genital CPT Codes: 93742 delivery+ Care([facility])
[2021-12-05] MEDS: Ketorolac 30 MG/ML Syringe IV (22:56)
--- NOTE | 2021-12-05 23:11 | NURSING ---
Bedside shift report given to Jennifer Kinney RN. She will assume care at this time.
--- NOTE | 2021-12-05 23:20 | NURSING ---
ligature machine CLAY 1
[2021-12-05] MEDS: Oxytocin 30 units/NS 500 ml 30 UNITS/500 ML IV.SOLN 167 UNITS IV (23:53)
[2021-12-06] VITALS (14 sets, daily range): BP systolic 104–129; BP diastolic 54–71; PULSE 62–97; RESP 16–18; TEMP 36.1–37.2; O2SAT 97–100
[2021-12-06] MEDS: Ondansetron 4 MG/2 ML Vial IV ×2 (01:10→04:48)
[2021-12-06] MEDS: Acetaminophen 500 MG Tablet 1000 MG PO ×4 (02:12→20:02)
[2021-12-06] MEDS: Lactated Ringers 1,000 ML 100 ML IV (02:49)
[2021-12-06] MEDS: Ketorolac 30 MG/ML Syringe IV ×3 (04:48→16:46)
[2021-12-06 05:12] LABS: Hemoglobin 7.7 g/dL (12.0-15.0); Mean Corp Hgb Conc 30.8 g/dL (32-36); Mean Corpuscular Volume 74.6 fL (81-99); Mean Platelet Vol. 10.6 fl (6.2-12.0); Platelet Count 215 K/mm3 (150-450); RBC Distribution Width CV 14.8 % (11.6-14.6); RBC Distribution Width SD 40.1 fl (35.1-43.9); Red Blood Count 3.35 M/mm3 (4.2-5.4); White Blood Count 15.8 K/mm3 (4.4-11.0)
[2021-12-06] MEDS: Budesonide Respules 0.5 MG/2 ML AMPUL.NEB. INHALATION ×2 (06:55→19:24)
[2021-12-06] MEDS: Albuterol 2.5 MG/3 ML VIAL.NEB. INHALATION ×3 (06:55→19:24)
--- NOTE | 2021-12-06 08:18 | PCM.PN.OB ---
Subjective Subjective Patient is laying in bed comfortably however complains of extreme nausea and vomiting. She states that she slept on an off during the night. Lochia is mild and pain is minimal. Objective Data Objective Data Vital Signs: Vital Signs Temp Pulse Resp BP Pulse Ox 97.3 F L 78 16 119/69 99 12/06/21 06:21 12/06/21 06:55 12/06/21 06:55 12/06/21 06:21 12/06/21 06:21 Oxygen Delivery Method Room Air Weight: 163 lb Body Mass Index (BMI) 29.3 Intake & Output: Intake and Output for Last 24 Hours 12/04/21 12/05/21 12/06/21 23:59 23:59 23:59 Intake Total 1362.5 / 1362.5 484.3 / 484.3 Output Total 50 / 50 500 / 500 Balance 1312.5 / 1312.5 -15.7 / -15.7 Lab / Micro Data Result Diagrams: 12/06/21 05:05 Labs: Laboratory Results - last 24 hr 12/05/21 18:10: WBC 12.1 H, RBC 3.70 L, Hgb 8.5 L, Hct 27.5 L, MCV 74.3 L, MCH 23.0 L, MCHC 30.9 L, RDW Std Deviation 40.1, RDW Coeff of Thais 14.9 H, Plt Count 247, MPV 11.4, Immature Gran % (Auto) 0.300, Neut % (Auto) 75.1 H, Lymph % (Auto) 18.4 L, [place] % (Auto) 5.6, Eos % (Auto) 0.4, Baso % (Auto) 0.2, Absolute Neuts (auto) 9.1 H, Absolute Lymphs (auto) 2.22, Nucleated RBC % 0 12/05/21 18:14: Blood Type B POSITIVE, Antibody Screen NEGATIVE 12/05/21 18:14: Crossmatch See Detail 12/06/21 05:05: WBC 15.8 H, RBC 3.35 L, Hgb 7.7 L, Hct 25.0 L, MCV 74.6 L, MCH 23.0 L, MCHC 30.8 L, RDW Std Deviation 40.1, RDW Coeff of Thais 14.8 H, Plt Count 215, MPV 10.6 Micro: Microbiology 12/05/21 19:44 Nasal Secretion SARS-CoV-2 Antigen (Rapid) - Final ROS Constitutional Constitutional: Reports systems reviewed and no addt'l complaints, except as documented Cardiovascular Cardiovascular: Denies chest pain, dizziness, dyspnea or irregular heart rhythm Respiratory/Chest Respiratory/Chest: Denies cough, pain on inspiration or shortness of breath at rest Gastrointestinal Gastrointestinal: Denies abdominal pain, nausea or vomiting Genitourinary Genitourinary: Denies burning urination Musculoskeletal Musculoskeletal: Denies muscle cramps, muscle spasms or muscle weakness Neurologic Neurologic: Denies confusion, dizziness, headache(s) or lack of coordination Psychiatric Psychiatric: Denies anxiety, behavioral changes or depression Physical Exam HEENT normocephalic Resp normal respiratory effort and normal air movement GI soft to palpation, non-tender and non-distended Rectal Exam: other Other Details: Incision is clean, dry, and intact no CVA tenderness Extremity normal to inspection General Extremity: edema bilateral (trace ) Assessment & Plan (1) Anemia: (2) labor: COMMENT: 36 weeks 6 days active labor, suspect polyhydramnios (3) Status post section: COMMENT: 12/05/21- JV active labor (4) Abnormal glucose affecting : COMMENT: Normal 3hr GTT (5) Rubella non-immune status, antepartum: COMMENT: get MMR (6) Supervision of high risk , antepartum: COMMENT: PRR GIORGIO: 12/27/21 girl PC: Sivan BF: Desmond (7) : QUALIFIERS: Weeks of gestation: 36 weeks Qualified Code(s): Z3A.36 - 36 weeks gestation of COMMENT: GBS negative, anatomy nl, needs addtnl facial views genetic-low risk female and carrier-neg (8) H/O section: COMMENT: plan RLTCS. scheduled for 12/20 at 7:30 am with JV (9) H/O hemorrhage, currently : COMMENT: received 2 units after her c/s, FTP CPD (10) Anxiety and depression: COMMENT: currently not on any medications PLAN: s/p LTCS PPD # 1 1. routine post care. Pt was anemic prior to surgery. hg dropped minimally and she is, other than nausea, asymptomatic. plan for iron infusion this afternoon. will try other remedies for nausea today. zofran not helping much. phenergan and reglan ordered. 2. breast feeding- support given. baby in NICU 3. rh positive 4. rubella non- immune- will need to vaccinate before dc
[2021-12-06] MEDS: Senna/Docusate Sodium 1 Tablet PO (08:48)
[2021-12-06] MEDS: Famotidine 20 MG Tablet PO ×2 (10:01→22:54)
[2021-12-06] MEDS: 0.9% Saline Lock 10 ML Syringe IV ×2 (13:26→16:47)
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
[2021-12-06] MEDS: Ibuprofen 600 MG Tablet PO (22:54)
[2021-12-07] VITALS (8 sets, daily range): BP systolic 103–118; BP diastolic 61–69; PULSE 70–84; RESP 16–18; TEMP 36.3–36.6; O2SAT 97–99
[2021-12-07] MEDS: 0.9% Saline Lock 10 ML Syringe IV (02:16)
[2021-12-07] MEDS: Acetaminophen 500 MG Tablet 1000 MG PO ×4 (02:16→21:02)
[2021-12-07] MEDS: Ibuprofen 600 MG Tablet PO ×4 (04:13→23:11)
[2021-12-07] MEDS: Budesonide Respules 0.5 MG/2 ML AMPUL.NEB. INHALATION ×2 (07:20→19:37)
[2021-12-07] MEDS: Albuterol 2.5 MG/3 ML VIAL.NEB. INHALATION ×3 (07:20→19:37)
--- NOTE | 2021-12-07 07:56 | PCM.PN.OB ---
Subjective Subjective Patient is laying in bed comfortably without complaints. She states that she slept on an off during the night. Lochia is mild and pain is minimal to moderate at times. She states that the nausea she had yesterday is gone and she ate a normal lunch and dinner yesterday. waiting on breakfast to come. Objective Data Objective Data Vital Signs: Vital Signs Temp Pulse Resp BP Pulse Ox 97.3 F L 83 18 108/61 98 12/07/21 02:17 12/07/21 07:20 12/07/21 07:20 12/07/21 02:17 12/07/21 02:17 Oxygen Delivery Method Room Air Weight: 163 lb Body Mass Index (BMI) 29.3 Intake & Output: Intake and Output for Last 24 Hours 12/05/21 12/06/21 12/07/21 23:59 23:59 23:59 Intake Total 1362.5 / 1362.5 1672.63 / 1672.63 Output Total 50 / 50 1200 / 1200 Balance 1312.5 / 1312.5 472.63 / 472.63 Lab / Micro Data Result Diagrams: 12/06/21 05:05 Micro: Microbiology 12/05/21 19:44 Nasal Secretion SARS-CoV-2 Antigen (Rapid) - Final ROS Constitutional Constitutional: Reports systems reviewed and no addt'l complaints, except as documented Cardiovascular Cardiovascular: Denies chest pain, dizziness, dyspnea or irregular heart rhythm Respiratory/Chest Respiratory/Chest: Denies cough, pain on inspiration or shortness of breath at rest Gastrointestinal Gastrointestinal: Denies abdominal pain, nausea or vomiting Genitourinary Genitourinary: Denies burning urination Musculoskeletal Musculoskeletal: Denies muscle cramps, muscle spasms or muscle weakness Neurologic Neurologic: Denies confusion, dizziness, headache(s) or lack of coordination Psychiatric Psychiatric: Denies anxiety, behavioral changes or depression Physical Exam HEENT normocephalic Resp normal respiratory effort and normal air movement GI soft to palpation, non-tender and non-distended Rectal Exam: other Other Details: Incision is clean, dry, and intact no CVA tenderness Extremity normal to inspection General Extremity: edema bilateral (trace ) Assessment & Plan (1) Anemia: (2) labor: COMMENT: 36 weeks 6 days active labor, suspect polyhydramnios (3) Status post section: COMMENT: 12/05/21- JV active labor (4) Rubella non-immune status, antepartum: COMMENT: get MMR PLAN: s/p LTCS PPD # 2 1. routine post care 2. breast feeding- support given 3. rh positive 4. rubella non- immune- needs mmr if not already given. 5. plan for dc to hot status tomorrow.
--- NOTE | 2021-12-07 08:48 | BH.SGPN.T2 ---
Behaviors/Verbalizations/Mental Status: [] Client Response/Progress/Benefit: [] clinical nursing instructor observation Narrative Note:
[2021-12-07] MEDS: Famotidine 20 MG Tablet PO ×2 (10:26→23:11)
[2021-12-08 03:00] VITALS: BP 106/65; PULSE 71; RESP 16; TEMP 36.7; O2SAT 96
[2021-12-08] MEDS: Acetaminophen 500 MG Tablet 1000 MG PO ×2 (03:15→08:56)
[2021-12-08] MEDS: Ibuprofen 600 MG Tablet PO ×2 (05:35→11:09)
[2021-12-08 07:15] VITALS: BP 112/58; PULSE 64; RESP 16; TEMP 36.2; O2SAT 97
[2021-12-08 07:24] VITALS: PULSE 73; RESP 16
[2021-12-08] MEDS: Albuterol 2.5 MG/3 ML VIAL.NEB. INHALATION (07:24)
[2021-12-08] MEDS: Budesonide Respules 0.5 MG/2 ML AMPUL.NEB. INHALATION (07:24)
--- NOTE | 2021-12-08 09:47 | DS.PCM_ITS ---
Providers Date of Admission: 12/05/21 Primary Care Physician: Enma Saleh, MANAGER EXPORTAguedaC Reason For Visit: REPEAT Diagnosis Discharge Diagnosis (1) Anemia: Status: Acute Code(s): D64.9 - Anemia, unspecified (2) labor: Status: Inactive Code(s): O60.00 - labor without delivery, unspecified trimester (3) Status post section: Status: Inactive Code(s): Z98.891 - History of uterine scar from previous surgery (4) Rubella non-immune status, antepartum: Status: Acute Code(s): O99.891 - Other specified diseases and conditions complicating ; Z28.3 - Underimmunization status Medications at Discharge Home Medications albuterol sulfate 90 mcg/actuation breath activated powder inhaler 2 inh INHALATION Q6H PRN 08/16/20 rizatriptan 5 mg PO DAILY 09/29/21 albuterol sulfate 2.5 mg INHALATION Q6H 10/18/21 budesonide-formoterol HFA 80 mcg-4.5 mcg/actuation aerosol inhaler 2 puff INHALATION BID 10/18/21 1 tablet PO/SL DAILY 11/23/21 acetaminophen 11/23/21 famotidine [Pepcid] 20 mg PO BID 11/23/21 ibuprofen 800 mg PO Q8H PRN 7 Days #30 tab 12/05/21 oxycodone-acetaminophen [Percocet] 1 tab PO Q4H PRN 7 Days #30 tab 12/05/21 Hospital Course Operations section Summary of Care Provided Minutes Spent on Discharge: 30 Hospital Course: The patient was admitted on 12/05/2021 for a repeat section at 36 weeks and 6 days. The procedure was performed early due to onset of contractions that was not resolving after several hours. The surgery was unremarkable and showed evidence of polyhydramnios which was likely the reason for her labor. On postoperative day #1 she felt quite nauseous and had a moderate amount of pain that was not well controlled initially on day #2 her pain was improving and she was ambulating without difficulty on po stpartum day #3 she was up and walking and visiting the baby in the NICU and stated that her pain was much improved. I postoperative day #3 she was ready for discharge to home. Physical Exam HEENT normocephalic Resp normal respiratory effort and normal air movement GI soft to palpation, non-tender and non-distended Rectal Exam: other Other Details: Incision is clean, dry, and intact no CVA tenderness Extremity normal to inspection General Extremity: edema bilateral (trace ) Weight / BMI Weight Weight: 163 lb Body Mass Index (BMI) 29.3 ABG / Lab / Microbiology Data Result Diagrams: 12/06/21 05:05 Microbiology: Microbiology 12/05/21 19:44 Nasal Secretion SARS-CoV-2 Antigen (Rapid) - Final D/C Instructions Discharge Diet: No restrictions May resume sexual activity in: 4-6 weeks Weight Bearing Status: Full weight bearing Call your doctor if your incision/area has: Continuous Slow Oozing, Sudden Increased Bleeding, Increased Pain/ Swelling, Increased Redness and Foul Smelling Discharge Call your doctor if you observe: Fever of 101 or Higher and Using more than 1 pad per hour Suture Line Care: Avoid Pulling/Pushing and Avoid Pinching/Bending Cleanse incision/area with: Soap & Water and Keep Dressing Clean & Dry Please Follow Up With: Martha Bowen DO When: Call [phone] to make an appointment for an incision check in 1-2 weeks. Meaningful Use Info Meaningful Use Diagnoses (Choose all that apply): None applicable Discharge Plan Admission Admit Date/Time: 12/05/21 19:25 Primary Reason for Your Visit: repeat section Attending Provider: Martha Bowen Primary Care Provider: Enma Saleh Discharge Orders/Prescriptions Prescriptions: New ibuprofen 800 mg tablet 800 mg PO Q8H PRN (Reason: pain) 7 Days Qty: 30 RF: 0 oxycodone-acetaminophen [Percocet] 5-325 mg tablet 1 tab PO Q4H PRN (Reason: pain) 7 Days Qty: 30 RF: 0 Continued albuterol sulfate 90 mcg/actuation aerosol powdr breath activated 2 inh INHALATION Q6H PRN (Reason: Shortness Of Breath) RF: 0 budesonide-formoterol [Symbicort] 80-4.5 mcg/actuation HFA aerosol inhaler 2 puff inhalation BID RF: 0 albuterol sulfate 2.5 mg /3 mL (0.083 %) solution for nebulization 2.5 mg inhalation Q6H RF: 0 rizatriptan 5 mg tablet 5 mg PO DAILY RF: 0 famotidine [Pepcid] 20 mg Tablet 20 mg PO BID RF: 0 1 tablet PO/SL DAILY RF: 0 acetaminophen RF: 0 Discontinued cyclobenzaprine 10 mg tablet 10 mg PO TID PRN (Reason: muscle spasm) Qty: 30 RF: 2 Referrals / Follow Up: Enma Saleh, MANAGER EXPORT-C [Primary Care Provider] - Disposition Disposition (needs filled in before D/C Order can be placed): Home, Self Care
[2021-12-08] MEDS: Famotidine 20 MG Tablet PO (10:35)
== END 2021-12-08 11:10 | disposition home or self-care (01) | DRG 540 ==
LOC: WPOUT 19:34 → WP 20:01
PROVIDERS: Admitting Provider Obstetrics & Gynecology; PCP Nurse Practitioner Family; Visit Provider Obstetrics & Gynecology
DX: O34.211 Maternal care for low transverse scar from previous cesarean delivery (principal); O60.14X0 Preterm labor third trimester with preterm delivery third trimester, not applicable or unspecified; O40.3XX0 Polyhydramnios, third trimester, not applicable or unspecified; J45.909 Unspecified asthma, uncomplicated; K21.9 Gastro-esophageal reflux disease without esophagitis; O99.62 Diseases of the digestive system complicating childbirth; O99.52 Diseases of the respiratory system complicating childbirth; Z3A.36 36 weeks gestation of pregnancy; Z37.0 Single live birth; O99.02 Anemia complicating childbirth; Z28.310 Unvaccinated for COVID-19; Z28.21 Immunization not carried out because of patient refusal
CPT/HCPCS: 59025; 59050; 85025; 85027; 86850; 86900; 86901; 86920; 87811; 94640; 99218; J7050; J7120; A4216; G0378; J2405; J2916

== ENCOUNTER → 2022-02-13 | Outpatient (CLI) | payer MEDICAID, SELFPAY ==
--- NOTE | 2022-02-13 15:23 | US_ITS ---
EXAM: US PELVIS TRANSVAGINAL CLINICAL INDICATION: IUD placement TECHNIQUE: Transvaginal pelvic ultrasound was performed with grayscale and color Doppler imaging. Transvaginal imaging was used for better evaluation of the endometrium and adnexa. This report was created using [employer] report generation technology. COMPARISON: None. FINDINGS: No adnexal masses. UTERUS/CERVIX: Anteverted uterus. Uterus measures 9.3 x 7.3 x 4.5 cm with endometrial convex thickness of 3 mm. IUD identified at the midline aspect. There is no uterine mass. IUD in place. RIGHT OVARY: Blood flow to the right ovary. Left ovary not visualized. Right ovary measures 2.8 x 2.3 x 2.3 cm. Left globe of the right ovary. No renal stones, masses or hydronephrosis. LEFT OVARY: See above. FREE FLUID: None. BLADDER: Empty bladder which cannot be evaluated with this probe. OTHER FINDINGS: No fibrous elements. Services normal. US/Transvaginal Non- IMPRESSION: No acute findings in the pelvis. Electronically Signed: David oCbian MD at 3:18 EDT ,
== END | disposition home or self-care (01) ==
LOC: US 15:22
PROVIDERS: PCP Nurse Practitioner Family; Referring Provider Nurse Practitioner Women's Health; Visit Provider Nurse Practitioner Women's Health
DX: Z30.430 Encounter for insertion of intrauterine contraceptive device (principal)
CPT/HCPCS: 76830

== ENCOUNTER 2022-07-10 10:31 | Emergency (ER) | payer MEDICAID, SELFPAY ==
[2022-07-10 10:32] VITALS: BP 129/72; PULSE 88; RESP 14; TEMP 36.2; O2SAT 100; BMI 30.2
[2022-07-10 14:05] VITALS: BP 123/82; PULSE 80; RESP 15; O2SAT 99
--- NOTE | 2022-07-10 14:19 | EX.ED.DYSGE1 ---
HPI <JENNY Yang - Last Filed: 07/10/22 16:17> History of Present Illness Chief Complaint: Lower Extremity Injury Narrative Narrative: Patient presents with left lower extremity swelling that started last night. She states she twisted her ankle around a year ago and has had swelling ever since. She has seen an orthopedist who performed x-rays and she has had MRIs done. She had no fracture and was told the MRI was unremarkable. She states she did not think she injured her ankle yesterday but was running around a lot at work yesterday. She states that she has never had swelling that spread to her left lower leg. She denies a history of blood clots, does not take oral control pills, has had no recent surgery, and has not travelled recently. PFS <JENNY Yang - Last Filed: 07/10/22 16:17> [facility]LY [facility] Medical History H/O hemorrhage, currently Hyperlipemia Migraines VIOLET (obstructive sleep apnea) labor PTSD (post-traumatic stress disorder) Home Medications albuterol sulfate 90 mcg/actuation breath activated powder inhaler 2 inh inhalation Q6H PRN Shortness Of Breath 08/16/20 [History Last Taken Unknown] albuterol sulfate 2.5 mg/3 mL (0.083 %) solution for nebulization 2.5 mg inhalation Q6H asthma 10/18/21 [History Last Taken Unknown] budesonide-formoterol HFA 80 mcg-4.5 mcg/actuation aerosol inhaler (Symbicort) 2 puff inhalation BID asthma 10/18/21 [History Last Taken Unknown] levonorgestrel 20 mcg/24 hours (8 yrs) 52 mg intrauterine device (Mirena) 1 device intrauterine ONCE 03/12/22 [History Last Taken Unknown] Allergy/AdvReac Type Severity Reaction Status Date / Time paroxetine [From Paxil] Allergy Intermediate Anaphylaxis Verified 07/10/22 10:32 fish derived Allergy NEEDS Verified 07/10/22 10:32 [seafood - derived] FOLLOW-UP mushroom Allergy Anaphylaxis Verified 07/10/22 10:32 shellfish derived Allergy NEEDS Verified 07/10/22 10:32 [seafood - shellfish] FOLLOW-UP tomato Allergy Anaphylaxis Verified 07/10/22 10:32 venlafaxine Allergy Anaphylaxis Verified 07/10/22 10:32 Family History Grandfather CVA (cerebral vascular accident) Heart disease Leukemia Surgical History H/O section S/P Status post section Social History household members: significant other and children number of children: 1 current occupational status: employed current occupation: [employer], residential history of recent travel: No sexually active: Yes Smoking Status: Never smoker alcohol intake: current alcohol intake frequency: a few times a month substance use type: does not use what type of physical activity do you participate in: walking frequency: 3-4 times per week seatbelt use: always do you feel safe at home: Yes additional social history: TILA Logan ROS <JENNY Yang - Last Filed: 07/10/22 16:17> ROS ED Constitutional Constitutional ED: Denies chills, fever(s) or sweats Eyes Eyes: Denies blurry vision or change in vision ENT ENT ED: Denies rhinorrhea or sore throat Cardiovascular Cardiovascular: Denies chest pain, palpitations or racing heartbeat Respiratory/Chest Respiratory/Chest: Denies cough, dyspnea or dyspnea on exertion Gastrointestinal Gastrointestinal: Denies abdominal pain, diarrhea, nausea or vomiting Genitourinary Genitourinary ED: Denies dysuria, hematuria or urinary frequency Musculoskeletal Musculoskeletal: Denies back pain or neck pain Integumentary Denies abscess, Abrasions or rash Neurologic Neurologic: Denies headache(s), paresthesias or weakness Psychiatric Psychiatric: Denies anxiety, depression or suicidal ideation EXAM <JENNY Yang - Last Filed: 07/10/22 16:17> Physical Exam Const Vital Signs: 07/10/22 10:32 07/10/22 14:05 Temperature 97.1 F L Temperature Source Temporal Pulse Rate 88 80 Respiratory Rate 14 15 Blood Pressure 129/72 H 123/82 H Blood Pressure Mean 91 95 Pulse Ox 100 99 Oxygen Delivery Method Room Air Room Air Positive well nourished and well developed General Appearance ED: well developed and NAD HEENT Reports moist mucous membranes Eyes PERRL and EOMs intact bilaterally Neck no lymphadenopathy and supple Chest Wall inspection of chest normal Resp normal respiratory effort and clear to auscultation bilaterally Cardio regular rate, regular rhythm and no murmurs GI non-tender, non-distended and no masses Palpation: soft Extremity Extremity Narrative: Left foot and ankle grossly edematous with mild swelling that extends to the lower left leg. No laxity in the left ankle joint. Patient does have full range of motion in her left ankle. Patient is able to move her toes around. No crepitus. DP pulses intact bilaterally. Good capillary refill bilaterally. Patient states light touch feels like [id number] to her left foot. Neuro oriented x3, CN's II-XII intact bilaterally and no sensory deficits noted Sensorium / Orientation: alert Psych mental status grossly normal Skin no rashes or lesions noted, no wounds and skin turgor normal <Dr. Leonardo Max MD - Last Filed: 07/10/22 14:52> Physical Exam Const Vital Signs: 07/10/22 10:32 07/10/22 14:05 Temperature 97.1 F L Temperature Source Temporal Pulse Rate 88 80 Respiratory Rate 14 15 Blood Pressure 129/72 H 123/82 H Blood Pressure Mean 91 95 Pulse Ox 100 99 Oxygen Delivery Method Room Air Room Air MDM <JENNY Yang - Last Filed: 07/10/22 16:17> MDM MDM Narrative Medical decision making narrative: I have personally performed a face to face assessment of the patient and have reviewed the NICOLE Note. I performed a substantive portion of the visit including all aspects of the following. My mota findings include: History is [evaluate with our physician bilingual administrative assistant. 22-year-old female chronic left ankle issues after multiple sprains. Has been seen by an orthopod and had a negative MRI in the past. There today she was running twisted her ankle again. But she said she is never had pain this high up and goes almost to her knee. Denies any other complaints. She is not on control. She has had no recent travel, surgery or hospitalization. She has never had a DVT or PE.] Exam is [well-appearing 22-year-old female. No acute distress. Vital signs stable afebrile. Pulse ox under percent on room air no hypoxia. HEENT exam normal. Lungs clear. Heart regular rhythm. Abdomen soft nontender. Moving all 4 extremities. Neurovascularly intact. From the proximal lower leg down to her ankle and foot she has swelling, edema and tenderness at the ankle. There is no cords. There is no specific calf tenderness. She has a palpable DP pulse. Dorsi and plantar flexion is intact. Achilles tendons intact. She is able to wiggle her toes. Normal touch sensation.] Medical Decision Making [22-year-old with lower leg swelling. This may be is from secondary chronic ankle issues. An x-ray will be obtained we will also do a noninvasive study of her lower leg to rule out the possibility of a DVT.] Other additions or changes: [None] Left ankle x-ray was negative for acute fracture. It is likely that patient has a grade 1 ankle sprain. Duplex ultrasound obtained on the left leg to rule out DVT due to swelling in the left lower leg. This was negative. Patient does have an orthopedist that she has seen for her ankle in the past. I encouraged her to follow-up with this doctor in 5-7 days. I am comfortable patient being discharged home in stable condition. I have given her RICE instructions. She has been given return instructions and she is comfortable with plan. Radiography Diagnostic Testing: Clinical Impression(s) from Imaging Studies Ankle X-Ray 07/10/22 14:49 IMPRESSION: 1. Mild to moderate soft tissue swelling around the ankle joint Electronically Signed: Arcadio Larose MD at 15:11 EST Reading Location ID and State: [address] [place] [address] , Service support , X-ray also reviewed and interpreted by attending ED physician. <Dr. Leonardo Max MD - Last Filed: 07/10/22 14:52> [facility] Narrative Medical decision making narrative: I have personally performed a face to face assessment of the patient and have reviewed the NICOLE Note. I performed a substantive portion of the visit including all aspects of the following. My mota findings include: History is [evaluate with our physician bilingual administrative assistant. 22-year-old female chronic left ankle issues after multiple sprains. Has been seen by an orthopod and had a negative MRI in the past. There today she was running twisted her ankle again. But she said she is never had pain this high up and goes almost to her knee. Denies any other complaints. She is not on control. She has had no recent travel, surgery or hospitalization. She has never had a DVT or PE.] Exam is [well-appearing 22-year-old female. No acute distress. Vital signs stable afebrile. Pulse ox under percent on room air no hypoxia. HEENT exam normal. Lungs clear. Heart regular rhythm. Abdomen soft nontender. Moving all 4 extremities. Neurovascularly intact. From the proximal lower leg down to her ankle and foot she has swelling, edema and tenderness at the ankle. There is no cords. There is no specific calf tenderness. She has a palpable DP pulse. Dorsi and plantar flexion is intact. Achilles tendons intact. She is able to wiggle her toes. Normal touch sensation.] Medical Decision Making [22-year-old with lower leg swelling. This may be is from secondary chronic ankle issues. An x-ray will be obtained we will also do a noninvasive study of her lower leg to rule out the possibility of a DVT.] Other additions or changes: [None] Radiography Diagnostic Testing: Clinical Impression(s) from Imaging Studies Ankle X-Ray 07/10/22 14:49 IMPRESSION: 1. Mild to moderate soft tissue swelling around the ankle joint Electronically Signed: Arcadio Larose MD at 15:11 EST Reading Location ID and State: [facility] / [place] , Service support , Discharge Plan Triage Chief Complaint: Lower Extremity Injury ED Midlevel Provider: Michelle Monique ED Provider: Leonardo Max Dx/Rx/DC Orders Clinical Impression: Ankle sprain Instructions: ED RICE Prescriptions: No Action albuterol sulfate 90 mcg/actuation aerosol powdr breath activated 2 inh INHALATION Q6H PRN (Reason: Shortness Of Breath) budesonide-formoterol [Symbicort] 80-4.5 mcg/actuation HFA aerosol inhaler 2 puff inhalation BID albuterol sulfate 2.5 mg /3 mL (0.083 %) solution for nebulization 2.5 mg inhalation Q6H Mirena 20 mcg/24 hours (7 yrs) 52 mg intrauterine device 1 device intrauterine ONCE Rx Instructions: as a single dose Stand Alone Forms: ED Work / School Excuse Primary Care Provider: Enma Saleh Referrals: Enma Saleh, [facility] [Primary Care Provider] - 5-7 Days Activity Restrictions/Additional Instructions: Rest the ankle, elevate it, and ice it for 10 to 15 minutes 3-4 times a day for the next few days. You can take Tylenol or Motrin for pain as needed. Please follow-up with PCP/ orthopedist. Disposition Disposition: Home, Self Care Discharge Date/Time: 07/10/22 15:21
--- NOTE | 2022-07-10 14:49 | VDLE_ITS ---
Reason For Study: Swelling Procedure LEFT This is a venous duplex using B-mode, color GSV is normal. flow and spectral Doppler. CFV is compressible, spontaneous, phasic, Exam performed portable in ED. competent, and demonstrates normal A preliminary report was called and/or faxed augmentation. to Dr. Max. FV is compressible, spontaneous, phasic, competent and demonstrates normal augmentation. POP V is compressible, spontaneous, phasic, competent and demonstrates normal augmentation. T/P Trunk is compressible. PTV is compressible. LT PerV is compressible. VL/Venous Duplex US, Unilateral Interpretation Summary Deep veins of the left lower extremity are patent and compressible segmentally. There is no evidence of left lower extremity deep vein thrombosis. The left great saphenous vein claudia ears patent and compressible segmentally. Ordering Physician: Leonardo Max Referring Physician: Enma Saleh Performed By: Maty Levi RVT
--- NOTE | 2022-07-10 14:49 | RAD_ITS ---
STUDY: X-RAY - LEFT ANKLE REASON FOR EXAM: Female, 22 years old. twisted and swelling LAST YEAR I TWISTED MY FOOT. C/O SWELLING IT CAME BACK ALL SUDDEN WHILE I WAS AT WORK. TECHNIQUE: 3 view(s) of the ankle. COMPARISON: None. FINDINGS: Normal visualized distal tibia and fibula. Normal medial and lateral malleoli. Normal tibiotalar articulation and ankle mortise. Normal visualized talus and calcaneus. The visualized subtalar, talonavicular, calcaneocuboid and tarsal articulations are normal. There is no demonstrated fracture. Mild to moderate soft tissue swelling is present around the ankle joint. RAD/Ankle min 3 Views IMPRESSION: 1. Mild to moderate soft tissue swelling around the ankle joint Electronically Signed: Arcadio Larose MD at 15:11 EST ,
== END 2022-07-10 15:21 | disposition home or self-care (01) ==
PROVIDERS: Emergency Provider Emergency Medicine; PCP Nurse Practitioner Family; Visit Provider Emergency Medicine
DX: S93.402A Sprain of unspecified ligament of left ankle, initial encounter (principal); E78.5 Hyperlipidemia, unspecified; R60.0 Localized edema; X58.XXXA Exposure to other specified factors, initial encounter
CPT/HCPCS: 73610; 93971; 99282

== ENCOUNTER → 2024-03-02 | Outpatient (CLI) | payer MEDICAID, SELFPAY ==
[2024-03-07 17:21] LABS: HPV Reflexed? NOT INDICATED
== END | disposition home or self-care (01) ==
PROVIDERS: Referring Provider Nurse Practitioner Women's Health; Visit Provider Nurse Practitioner Women's Health
DX: Z12.4 Encounter for screening for malignant neoplasm of cervix (principal)
CPT/HCPCS: 88175; G0145

== ENCOUNTER 2024-04-02 22:14 | Emergency (ER) | payer MEDICAID, SELFPAY ==
--- NOTE | 2024-04-02 00:30 | RAD_ITS ---
INDICATION: pain no injury EXAMINATION/TECHNIQUE: X-RAY - LEFT XR Foot Min 3 Views 3 VIEWS COMPARISON: No relevant prior comparison study available FINDINGS: SOFT TISSUES: No soft tissue swelling or gas. No radiopaque foreign body. BONES/JOINTS: No acute fracture or subluxation.. Normal alignment. Preservation of the joint space.. No sclerotic or destructive changes observed. RAD/Foot min 3 Views IMPRESSION: Negative. Electronically Signed: Julio Boswell MD at 2:28 EDT ,
--- NOTE | 2024-04-02 00:30 | RAD_ITS ---
INDICATION: pain no injury EXAMINATION/TECHNIQUE: X-RAY - LEFT XR Ankle Min 3 Views 3 VIEWS COMPARISON: No relevant prior comparison study available FINDINGS: SOFT TISSUES: No soft tissue swelling or gas. No radiopaque foreign body. BONES/JOINTS: No acute fracture or subluxation.. Normal alignment. Preservation of the joint space.. No sclerotic or destructive changes observed. RAD/Ankle min 3 Views IMPRESSION: Negative. Electronically Signed: Julio Boswell MD at 2:24 EDT ,
[2024-04-02 22:15] VITALS: BP 117/83; PULSE 88; RESP 18; TEMP 36.3; O2SAT 96; BMI 30.2
[2024-04-03] MEDS: Ketorolac 30 MG/ML Syringe IM (00:02)
--- NOTE | 2024-04-03 00:05 | EX.ED.DYSGE1 ---
HPI History of Present Illness Chief Complaint: Lower Extremity Injury Narrative Narrative: Patient is a 23-year-old female with past medical history of PTSD, hyperlipidemia, VIOLET, migraine headaches who presents to the emergency department the chief complaint of left foot and ankle pain. Patient states that after she got off work today she noted that she had some swelling and pain in this area. States that she has chronic swelling in the left lower extremity from previous surgery that she had on her ankle. She denies any new injuries or trauma to her foot or ankle. Denies any history of blood clots denies any recent travel history denies smoking. Denies any IV drug use or alcohol use. Patient states that she did not take anything for pain prior to arrival here [facility]. [facility] Medical History labor PTSD (post-traumatic stress disorder) Hyperlipemia H/O hemorrhage, currently VIOLET (obstructive sleep apnea) Migraines Home Medications ?Medication ?Instructions ?Recorded ?Last Taken ?Type albuterol sulfate 90 mcg/actuation 2 inh inhalation Q6H PRN Shortness 08/16/20 Unknown History breath activated powder inhaler Of Breath albuterol sulfate 2.5 mg/3 mL 2.5 mg inhalation Q6H asthma 10/18/21 Unknown History (0.083 %) solution for nebulization budesonide-formoterol HFA 80 2 puff inhalation BID asthma 10/18/21 Unknown History mcg-4.5 mcg/actuation aerosol inhaler (Symbicort) levonorgestrel 21 mcg/24 hr (up to 1 device intrauterine ONCE 03/12/22 Unknown History 8 years) 52 mg intrauterine device (Mirena) mecobalamin (vitamin B12) 10,000 mcg IM 02/27/23 Unknown History mcg solution for injection Allergy/AdvReac Type Severity Reaction Status Date / Time paroxetine (From Paxil) Allergy Intermediate Anaphylaxis Verified 04/02/24 22:15 fish derived (seafood - Allergy NEEDS Verified 04/02/24 22:15 derived) FOLLOW-UP mushroom Allergy Anaphylaxis Verified 04/02/24 22:15 shellfish derived (seafood Allergy NEEDS Verified 04/02/24 22:15 - shellfish) FOLLOW-UP tomato Allergy Anaphylaxis Verified 04/02/24 22:15 venlafaxine Allergy Anaphylaxis Verified 04/02/24 22:15 Family History Grandfather CVA (cerebral vascular accident) Heart disease Leukemia Surgical History History of ankle surgery Status post section H/O section S/P Social History household members: significant other and children number of children: 1 current occupational status: employed current occupation: [employer], [employer] history of recent travel: No sexually active: Yes Smoking Status: Never smoker alcohol intake: current alcohol intake frequency: a few times a month substance use type: does not use what type of physical activity do you participate in: walking frequency: 3-4 times per week seatbelt use: always do you feel safe at home: Yes additional social history: DONNA- Desmond GRACIA ROS ED ROS Narrative Constitutional: Patient denies fevers, chills, headaches, lightness, dizziness Cardiovascular: Denies chest pain or palpitations Respiratory: Denies shortness of breath Abdomen: Denies nausea vomit diarrhea : Denies urinary symptoms Neurological: Denies numbness, weakness, tingling Musculoskeletal: Complains of left foot and ankle pain as noted above Skin: Denies rashes or lesions EXAM Physical Exam Narrative Exam Narrative: General: Patient lying in bed rest comfortably did not appear to be in acute distress Head: Atraumatic, normocephalic Eyes: PERRL bilaterally, EOMI bilaterally, no conjunctival injection noted Neck: Soft, supple, trachea midline Cardiovascular: Regular rate and rhythm no murmurs gallops rubs noted Extremities: +5/5 strength noted in the bilateral upper and lower extremities, DP pulses +2/4 in the bilateral lower extremities, patient has some tenderness palpation over the left medial malleolus Neurological: Patient following commands knew that she was at [facility] years 2023. Sensation grossly intact in her bilateral upper and lower extremities Skin: Warm, dry, intact, no rashes or lesions noted Const Vital Signs: 04/02/24 22:15 Temperature 97.3 F L Temperature Source Temporal Pulse Rate 88 Respiratory Rate 18 Blood Pressure 117/83 H Blood Pressure Mean 94 Pulse Ox 96 Oxygen Delivery Method Room Air MDM MDM MDM Narrative Medical decision making narrative: Patient is a 23-year-old female who presents to the emergency department with a chief complaint of left foot and ankle pain after work with no injury noted. Patient will be given Toradol for pain control patient will have workup here on the differential diagnose includes but limited to ankle sprain, fracture although feel this less likely as any trauma or injuries. She will be reevaluated. Patient's x-rays of her foot and ankle were reviewed and were negative did not show any acute fractures dislocations. Discussed results with the patient she would like to go home at this point time. She was advised to ice, elevate and rotate Tylenol ibuprofen [id number]. She is agreeable plan. Patient was advised to follow-up with her primary care physician outpatient setting and return with worsening symptoms or any other concerns. All question concerns answered she is discharged home in stable condition. Radiography Diagnostic Testing: Clinical Impression(s) from Imaging Studies Ankle X-Ray 04/02/24 00:30 IMPRESSION: Negative. Electronically Signed: Julio Boswell MD at 2:24 EDT Reading Location ID and State: [facility] / [place] Tel , Service support , Foot X-Ray 04/02/24 00:30 IMPRESSION: Negative. Electronically Signed: Julio Boswell MD at 2:28 EDT , Discharge Plan Triage Chief Complaint: Lower Extremity Injury ED Provider: Honorio Lechuga Dx/Rx/DC Orders Clinical Impression: Foot and ankle pain Instructions: ED RICE Prescriptions: No Action albuterol sulfate 90 mcg/actuation aerosol powdr breath activated 2 inh INHALATION Q6H PRN (Reason: Shortness Of Breath) budesonide-formoterol [Symbicort] 80-4.5 mcg/actuation HFA aerosol inhaler 2 puff inhalation BID albuterol sulfate 2.5 mg /3 mL (0.083 %) solution for nebulization 2.5 mg inhalation Q6H Mirena 20 mcg/24 hours (7 yrs) 52 mg intrauterine device 1 device intrauterine ONCE Rx Instructions: as a single dose mecobalamin (vitamin B12) 10,000 mcg recon soln IM Primary Care Provider: Enma Gottlieb Referrals: Enma Gottlieb, [facility] [Primary Care Provider] - Activity Restrictions/Additional Instructions: Follow with your primary care physician outpatient setting. Return with worsening symptoms or any concerns. Ice, elevate, rotate Tylenol and ibuprofen [id number] for pain control. Print Language: Gambian Disposition Disposition: Home, Self Care
[2024-04-03 02:14] VITALS: BP 110/66; PULSE 69; RESP 16; TEMP 36.9; O2SAT 100
== END 2024-04-03 02:39 | disposition home or self-care (01) ==
PROVIDERS: Emergency Provider Emergency Medicine; PCP Nurse Practitioner Family; Visit Provider Emergency Medicine
DX: M25.572 Pain in left ankle and joints of left foot (principal); E78.5 Hyperlipidemia, unspecified; F43.10 Post-traumatic stress disorder, unspecified; M79.89 Other specified soft tissue disorders; Z98.890 Other specified postprocedural states; M79.672 Pain in left foot
CPT/HCPCS: 73610; 73630; 96372; 99282

== ENCOUNTER 2024-04-12 21:42 | Emergency (ER) | payer MEDICAID, SELFPAY ==
[2024-04-12 21:43] VITALS: BP 113/75; PULSE 86; RESP 16; TEMP 36.6; O2SAT 98; BMI 31.1
--- NOTE | 2024-04-13 01:17 | CT_ITS ---
EXAM: CT CERVICAL SPINE WITHOUT INTRAVENOUS CONTRAST CLINICAL INDICATION: Left sided Cervical radiculopathy Left sided Cervical radiculopathy TECHNIQUE: Helically acquired images were obtained of the cervical spine without intravenous contrast. 2D reformatted images were reviewed. This CT exam was performed using one or more of the following dose reduction techniques: automated exposure control, adjustment of the mA and/or kV according to patient size, and/or use of iterative reconstruction technique. RADIATION DOSE: CTDIvol = 44.99 mGy, DLP = 829.85 mGy-cm COMPARISON: No relevant prior studies available. FINDINGS: VERTEBRAE: Unremarkable. No fracture. No traumatic subluxation. No discrete lytic or blastic abnormality. Normal alignment. Normal craniocervical junction and cervicothoracic junction. DISCS/SPINAL CANAL/NEURAL FORAMINA: Unremarkable. Disc heights are preserved. No critical stenosis. SOFT TISSUES: Unremarkable. No prevertebral soft tissue swelling. LYMPH NODES: Unremarkable. No cervical adenopathy. LUNG APICES: Unremarkable as visualized. Clear. CT/Spine Cervical without Contras IMPRESSION: No demonstrated fracture, subluxation, or significant degenerative changes. Electronically Signed: Kiko Greco MD at 2:57 EDT Reading Location ID and State: [facility] / [place] , Service support ,
--- NOTE | 2024-04-13 01:17 | CT_ITS ---
EXAM: CT HEAD WITHOUT INTRAVENOUS CONTRAST CLINICAL INDICATION: headache headache TECHNIQUE: Multiple axial images were obtained of the head without intravenous contrast. This CT exam was performed using one or more of the following dose reduction techniques: automated exposure control, adjustment of the mA and/or kV according to patient size, and/or use of iterative reconstruction technique. RADIATION DOSE: CTDIvol = 44.99 mGy, DLP = 829.85 mGy-cm COMPARISON: No relevant prior studies available. FINDINGS: BRAIN AND EXTRA-AXIAL SPACES: Unremarkable. No intra- or extra-axial hemorrhage. No evidence of acute infarct. No intracranial mass or mass effect. There is preservation of the tinajero/white matter interface. Posterior fossa structures are unremarkable. Ventricles are appropriate for age. No hydrocephalus. Basal cisterns are patent. BONES/JOINTS: Unremarkable. No discrete lytic or blastic abnormalities. SINUSES: Unremarkable as visualized. Clear. MASTOID AIR CELLS: Unremarkable. Clear. ORBITS: Visualized globes, extraocular muscles, optic nerves and retrobulbar fat appear unremarkable. CT/Brain/Head without Contrast IMPRESSION: No demonstrated acute intracranial process. Electronically Signed: Kiko Greco MD at 2:54 EDT Reading Location ID and State: [facility] / [place] , Service support ,
[2024-04-13 01:43] VITALS: BP 110/78; PULSE 68; RESP 18; O2SAT 98
[2024-04-13] MEDS: DiphenhydrAMINE 50 MG/ML Syringe 25 MG IV (02:21)
[2024-04-13] MEDS: Metoclopramide 10 MG/2 ML Vial IV (02:22)
[2024-04-13] MEDS: Ketorolac 30 MG/ML Syringe IV (02:22)
--- NOTE | 2024-04-13 03:09 | EDS_ITS ---
HPI History of Present Illness Chief Complaint: Other, Pain/Inj Informant: patient Narrative Narrative: Patient is a 23-year-old female with past medical history of migraine headache obstructive sleep apnea as well as anxiety and depression. 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 She states she was helping to move a patient when she noticed numbness and tingling sensation as well as pain in the left arm. She states that this sensation traveled all the way from her shoulder down to her fingertips. She reports she also noticed a right sided headache associated with this. She states she does have a history of migraine headache but this headache was different in nature compared to her previous as the previous headaches were more whole head versus right side. Based on the headache and the arm numbness and pain she was unsure if this was neurologic or potentially due to a nerve injury so she presents for evaluation [facility] Medical History labor PTSD (post-traumatic stress disorder) Hyperlipemia H/O hemorrhage, currently VIOLET (obstructive sleep apnea) Migraines Home Medications ?Medication ?Instructions ?Recorded ?Last Taken ?Type albuterol sulfate 90 mcg/actuation 2 inh inhalation Q6H PRN Shortness 08/16/20 Unknown History breath activated powder inhaler Of Breath albuterol sulfate 2.5 mg/3 mL 2.5 mg inhalation Q6H asthma 10/18/21 Unknown History (0.083 %) solution for nebulization budesonide-formoterol HFA 80 2 puff inhalation BID asthma 10/18/21 Unknown History mcg-4.5 mcg/actuation aerosol inhaler (Symbicort) levonorgestrel 21 mcg/24 hr (up to 1 device intrauterine ONCE 03/12/22 Unknown History 8 years) 52 mg intrauterine device (Mirena) methocarbamol 500 mg tablet 1,000 mg (2 x 500 mg) PO 4X/DAY 04/13/24 Unknown Rx PRN Muscle pain/spasm #56 tabs Allergy/AdvReac Type Severity Reaction Status Date / Time paroxetine (From Paxil) Allergy Intermediate Anaphylaxis Verified 04/13/24 00:07 fish derived (seafood - Allergy NEEDS Verified 04/13/24 00:07 derived) FOLLOW-UP mushroom Allergy Anaphylaxis Verified 04/13/24 00:07 shellfish derived (seafood Allergy NEEDS Verified 04/13/24 00:07 - shellfish) FOLLOW-UP tomato Allergy Anaphylaxis Verified 04/13/24 00:07 venlafaxine Allergy Anaphylaxis Verified 04/13/24 00:07 Family History Grandfather CVA (cerebral vascular accident) Heart disease Leukemia Surgical History History of ankle surgery Status post section H/O section S/P Social History household members: significant other and children number of children: 1 current occupational status: employed current occupation: assisteed living, senior care history of recent travel: No sexually active: Yes Smoking Status: Never smoker alcohol intake: current alcohol intake frequency: a few times a month substance use type: does not use what type of physical activity do you participate in: walking frequency: 3-4 times per week seatbelt use: always do you feel safe at home: Yes additional social history: [employer] ROS ED Constitutional Constitutional ED: Denies chills or fever(s) Eyes Eyes: Reports other Details: Positive photophobia ENT ENT ED: Denies rhinorrhea or sore throat Cardiovascular Cardiovascular: Denies chest pain, palpitations or racing heartbeat Respiratory/Chest Respiratory/Chest: Denies cough or dyspnea Gastrointestinal Gastrointestinal: Denies abdominal pain, diarrhea, nausea or vomiting Genitourinary Genitourinary ED: Denies dysuria Musculoskeletal Musculoskeletal: Denies back pain or neck pain Integumentary Denies rash Neurologic Neurologic: Reports headache(s) and paresthesias Psychiatric Psychiatric: Reports anxiety and depression Hematologic/Lymphatic Hematologic/Lymphatic: Denies easy bleeding or easy bruising EXAM Physical Exam Const Vital Signs: 04/12/24 21:43 04/12/24 23:43 04/13/24 01:43 Temperature 98 F Temperature Source Temporal Pulse Rate 86 68 Respiratory Rate 16 18 Respiratory Effort Normal Blood Pressure 113/75 110/78 Blood Pressure Mean 87 88 Pulse Ox 98 98 Positive well nourished and well developed General Appearance ED: well developed; Negative for pallor HEENT HEENT Narrative: Normocephalic atraumatic No signs of depressed or basilar skull fracture Eyes PERRL and EOMs intact bilaterally Neck Neck Narrative: No bony deformity or step-off of the cervical spine no midline tenderness to palpation Positive Spurling sign on the left In the left upper trapezius/rhomboid region there is also significant left-sided muscle tension and spasm when compared to right Resp normal respiratory effort and clear to auscultation bilaterally Cardio regular rate and regular rhythm Back/Spine Back/Spine Narrative: No bony deformity or step-off of the thoracic or lumbar spine no midline tenderness to palpation Extremity Extremity Narrative: Left upper extremity is neurovascularly intact; AIN/PIN are intact and normal No obvious bony deformity or joint effusion Compartments are soft and compressible going against compartment syndrome Capillary refills less than 3 seconds Neuro oriented x3, CN's II-XII intact bilaterally and no sensory deficits noted Neuro Narrative: Cranial nerves II through XII are grossly intact without focal neurologic deficit No pronator drift no dysmetria no truncal ataxia GCS of 15 NIH stroke scale score of 0 Patient reports numbness in her left arm but when dermatomes are tested with soft and sharp sensation she can differentiate between the 2 sensations in multiple areas Sensorium / Orientation: alert Motor Exam: strength 5/5 throughout Psych Psych Narrative: Patient has a flat affect Skin no rashes or lesions noted and no wounds General Skin Exam: Negative for jaundice or pallor MDM MDM MDM Narrative Medical decision making narrative: Patient arrived to the ER with stable vitals. She reported left arm numbness and tingling after mechanical use but no true trauma. She also reported a headache and stated that this headache was slightly different than her baseline migraines. As there is concern this could be due to the potential bleed or mass I did elect to perform a head CT and with possibility of her arm numbness/pain being from cervical degeneration a CT scan of the cervical spine was obtained as well. Head CT revealed no acute findings and CT scan of the neck revealed no obvious bony derangement or signs of degenerative disc disease. By exam there are no signs of infection such as cellulitis or abscess and her compartments are soft and compressible going against this as a cause of her symptoms. By exam she has muscular tension and spasm in the left upper trapezius/rhomboid region and I do feel this is causing superficial nervous compression which causes her left arm sensation. She was treated with Toradol Benadryl and Reglan and had resolution of her headache and her neurologic exam remained normal. Therefore at this time with resolution of symptoms no signs of acute bleed or mass or neurovascular compromise there is no need for further workup and she is otherwise safe for discharge History & Record Review Discussion w/independent historian: Patient Radiography Diagnostic Testing: Clinical Impression(s) from Imaging Studies Brain CT 04/13/24 01:17 IMPRESSION: No demonstrated acute intracranial process. Electronically Signed: Kiko Greco MD at 2:54 EDT , Cervical Spine CT 04/13/24 01:17 IMPRESSION: No demonstrated fracture, subluxation, or significant degenerative changes. Electronically Signed: Kiko Greco MD at 2:57 EDT , Discharge Plan Triage Chief Complaint: Other, Pain/Inj ED Provider: David Griffith Dx/Rx/DC Orders Clinical Impression: Cephalgia, Cervical radiculopathy, Anxiety and depression, Obstructive sleep apnea Instructions: Understanding Headache Pain, ED Radiculopathy, Cervical Prescriptions: New methocarbamol 500 mg tablet 1,000 mg PO 4X/DAY PRN (Reason: Muscle pain/spasm) Qty: 56 0RF No Action albuterol sulfate 90 mcg/actuation aerosol powdr breath activated 2 inh INHALATION Q6H PRN (Reason: Shortness Of Breath) budesonide-formoterol [Symbicort] 80-4.5 mcg/actuation HFA aerosol inhaler 2 puff inhalation BID albuterol sulfate 2.5 mg /3 mL (0.083 %) solution for nebulization 2.5 mg inhalation Q6H Mirena 20 mcg/24 hours (7 yrs) 52 mg intrauterine device 1 device intrauterine ONCE Rx Instructions: as a single dose Primary Care Provider: Enma Gottlieb Referrals: Enma Gottlieb, [facility] [employer] [Primary Care Provider] - Print Language: Syrian Disposition Disposition: Home, Self Care
== END 2024-04-13 03:23 | disposition home or self-care (01) ==
PROVIDERS: Emergency Provider Emergency Medicine; PCP Nurse Practitioner Family; Visit Provider Emergency Medicine
DX: M54.12 Radiculopathy, cervical region (principal); G47.33 Obstructive sleep apnea (adult) (pediatric); F32.A Depression, unspecified; F41.9 Anxiety disorder, unspecified; M79.602 Pain in left arm; E78.5 Hyperlipidemia, unspecified; R51.9 Headache, unspecified; R20.2 Paresthesia of skin; R20.0 Anesthesia of skin; M62.830 Muscle spasm of back
CPT/HCPCS: 70450; 72125; 99282

== ENCOUNTER 2024-04-21 10:12 | Outpatient (RCR) | payer MEDICAID, SELFPAY ==
--- NOTE | 2024-04-21 11:17 | HP.PTEVAL ---
Patient's Visit Information Visit Information Visit Information: SHANE KIMBALL is a 23 year old F referred to Physical Therapy by Dr. Torey Germain MD with a diagnosis of L foot and ankle pain. Date of Evaluation: 04/21/24 Physical Therapist: Estevan Tineo, DPT, OCS, CSCS Visit Plan Frequency: 3x /Week Duration: 4-6 Weeks Plan: 3x/week for 3-6 for IE HEP: towel toe curls 40x, seated heel toe raises 2x10, AROM full inv/ev and PF/DF 15x all 3x/day and compression garments as able and elevate after work, HO given,Encouraged pat to not focus so much on swelling as this was present prior to surgery and may not improve, but pain can. Treat with A/PROM L ankle, mobs and desensitization massage, stretching gastroc and tibialis, strengthening of ankle to HEP, may use heat ice contrast as needed, pt may bring comression garment for instruct if needed, may use VASO if swelling persists. Subjective Subjective: Had surgery on l ankle last year moving tendon. L foot still swells and still hurts when it swollen. Hurts most of day. hard to get shoe off. Pain is L top of foot to ankle and it swells up. Surgery did not help with swelling and now it hurts. Dr. Clemens computed tomography technician and f/u was good. Rona sent for PT. Sleep is OK. 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 Limping by end of shift. hard to climb in bigger vehicles. No regular exercises except walking. Hobbies: work and reading books which is fine. BasiADLs : doing all they just hurt. No steps at home except 3 into trailer. Pain L ankle: Pain Intensity (Out of 10): 0 Pain Intensity Range: 0 and 6 Comment: 0 at rest, hurts most days much of day. Objective Objective: Walks into PT slowly but without antalgia today despite feeling like she is limping. Trasnfers chair and bed I, steps are reciprocal and hesitant on L but able. Tender anterior lateral L ankle to palpation non specifically but mostly with PF OP. L foot is cold but not discolored vs R side. Pulses are barely palpable pedally at B feet. AROM at L ankle is 0 DF and 45 PF vs 5 to 55 on R and painful L PF. Inv and eversion are hard coordinally on L LE but able once shown to 20 inv and 10 eversion , vs 25 inv PROM, similar to R side. strength is 4/5 in all ankle motions and not much increased pain. reflexes 2/3 patella adn achilles B. Sensation LE WNL to gross light touch B. Metatarsals move well B as does big toe and no real pain. L ankle swollen vs R side, not pitting but noticeably larger at malleoli able to heel and toe wealk and march without increased pain today but not comfortable. Balance/Special Test Scores Lower Extremity Functional Score: 71 Goals Goal 1:: Full aROM L ankle without pain Goal Time Frame: 4-6 Weeks Goal 2:: Ankle pain 80% better and 1/10 at worst Goal Time Frame: 4-6 Weeks Goal 3:: Work without increased discomfort Goal Time Frame: 4-6 Weeks Goal 4:: Sleep without interruption form ankle pain Goal Time Frame: 4-6 Weeks Goal 5:: I appropriate HEP to manage swelling and pain Goal Time Frame: 4-6 Weeks Rehabilitation Potential Physical Therapy Diagnosis: L foot swelling and pain limiting comfortable function and work Rehabilitation Potential: Fair Anticipated Interventions Patient/Client Instruction: Educate patient on: Condition and Plan of Care For the Purpose of:: To decrease pain, To decrease swelling/inflammation, To increase ROM, To improve nutrient delivery to tissue, To improve muscle performance and motor function and To improve gait and locomotor functions Therapeutic Exercise to Include: Strength training, Flexibilty training, Passive ROM and Active ROM For the Purpose of:: To decrease pain, To decrease swelling/inflammation, To increase ROM, To improve nutrient delivery to tissue, To increase oxygenation perfusion and To improve gait and locomotor functions Manual Therapy Techniques to Include: Scar massage, Mobilization, Passive ROM and Soft tissue mobilization For the Purpose of:: To decrease pain, To decrease swelling/inflammation, To increase ROM and To improve nutrient delivery to tissue Cryotherapy (ice pack, ice massage): Yes Thermo therapy (hot pack): Yes Vasopneumatic device: Yes For the Purpose of:: To decrease pain, To decrease swelling/inflammation and To improve nutrient delivery to tissue Text: Thank you for the opportunity to evaluate your patient. For Medicare and Medicare HMO plans, please review the plan of care and approve it. It will need to be FAXED BACK to us at [phone] for Medicare purposes. For Medicare only, by signing this I certify the plan of care. Please let me know if there are questions or concerns regarding this plan of care. Physician Signature: Date:
== END 2024-04-30 09:53 | disposition home or self-care (01) ==
LOC: PT 10:12
PROVIDERS: PCP Nurse Practitioner Family; Referring Provider Orthopaedic Surgery Sports Medicine; Visit Provider Orthopaedic Surgery Sports Medicine
DX: M79.673 Pain in unspecified foot (principal); M25.579 Pain in unspecified ankle and joints of unspecified foot
CPT/HCPCS: 97110; 97161